=== PATIENT | male | born 1985 | race Caucasian/White ===

== ENCOUNTER → 2016-09-01 | Outpatient (CLI) | payer OTHER ==
[~2016-09-01] VITALS: Ht 167.6 cm; Wt 103.0 kg
[~2016-09-01] MED LIST: ASPI81TA28 PO; LEVO200T PO; LEVO25TA5 PO; OMEG10007 PO
[2016-09-01 13:16] VITALS: BP 118/77; PULSE 103; Ht 167.6 cm; Wt 103.0 kg
== END | disposition home or self-care (01) ==
LOC: C.NEUR 12:20
PROVIDERS: ATTEND Internal Medicine Pulmonary Disease
DX: G47.33 Obstructive sleep apnea (adult) (pediatric) (principal); E66.9 Obesity, unspecified

== ENCOUNTER → 2017-03-09 | Outpatient (CLI) | payer OTHER ==
[~2017-03-09] VITALS: Ht 175.3 cm; Wt 114.5 kg
[2017-03-09 12:35] VITALS: BP 121/75; PULSE 105; Ht 175.3 cm; Wt 114.5 kg
== END | disposition home or self-care (01) ==
LOC: C.NEUR 12:07
PROVIDERS: ATTEND Physician Assistant Medical
DX: E66.9 Obesity, unspecified (principal); G47.33 Obstructive sleep apnea (adult) (pediatric)

== ENCOUNTER 2017-10-11 07:09 | Emergency (ER) | payer OTHER ==
[~2017-10-11] VITALS: Ht 175.3 cm; Wt 114.0 kg
[2017-10-11 07:18] VITALS: TEMP 36.6; Ht 175.3 cm; Wt 114.0 kg
[2017-10-11] MEDS ORDERED: KETOROLAC TROMETHAMINE 30 MG/ML VIAL IV STA (07:34)
[2017-10-11] MEDS ORDERED: ONDANSETRON INJ 2 MG/ML 2 ML VIAL IV STA (07:34)
[2017-10-11] MEDS ORDERED: SODIUM CHLORIDE 0.9% 1000ML 1,000 ML IV STA (07:34)
[2017-10-11] MEDS ORDERED: PANT40TA2 PO (07:54)
[2017-10-11] MEDS ORDERED: METF500T5 PO (07:54)
[2017-10-11] MEDS ORDERED: LISI-461 PO (07:54)
[2017-10-11] MEDS ORDERED: FLNIN/ NAE (07:54)
[2017-10-11 07:58] LABS: BASO % 0.7 %; BASO ABS # 0.05 K/uL (0-0.2); EOS % 2.5 %; EOS ABS # 0.19 K/uL (0-0.5); HEMATOCRIT 46.7 % (42-52); HEMOGLOBIN 16.4 g/dL (14.0-18.0); IG# 0.02 K/uL (0.00-0.02); LYMPH ABS # 1.89 K/uL (1.2-3.4); MEAN CELL VOLUME 88.1 fL (80-100); MEAN CORPUSCULAR HEMOGLOBIN 30.9 pg (25-34); MEAN CORPUSCULAR HGB CONC 35.1 g/dl (32-36); MEAN PLATELET VOLUME 12.3 fL (7.4-10.4); MONO % 6.9 %; MONO ABS # 0.52 K/uL (0.11-0.59); NEUT % 64.6 %; PLATELET COUNT 179 K/uL (130-400); RED CELL DISTRIBUTION WIDTH CV 13.2 % (11.5-14.5); RED CELL DISTRIBUTION WIDTH SD 42.4 fL (36.4-46.3); WHITE BLOOD COUNT 7.57 K/uL (4.8-10.8)
[2017-10-11 08:29] LABS: ALBUMIN 3.9 gm/dl (3.4-5.0); CALCIUM 8.8 mg/dl (8.5-10.1); TOTAL PROTEIN 7.8 gm/dl (6.4-8.2)
[2017-10-11 08:31] LABS: CREATININE 1.05 mg/dl (0.60-1.40)
[2017-10-11 08:36] LABS: POTASSIUM 4.5 mmol/L (3.5-5.1)
--- NOTE | 2017-10-11 09:13 | DIAGNOSTIC IMAGING REPORT ---
ABDOMINAL ULTRASOUND, RIGHT UPPER QUADRANT HISTORY: Generalized abdominal pain with nausea, vomiting, diarrhea., URINARY SYMPTOMS. COMPARISON: Abdomen and pelvis CT 12/01/2013. FINDINGS: Pancreas: Obscured by overlying bowel gas. Liver: The liver is echogenic consistent with fatty change. 22 cm in length. Gallbladder: No gallbladder wall thickening. No gallstones. CBD: 5 mm. Right kidney: No hydronephrosis. IMPRESSION: 1. Normal gallbladder. No gallstones. 2. Hepatomegaly demonstrating fatty change. Electronically signed by: Raymond Blackwood M.D. 10/11/2017 9:12 AM Dictated Date/Time: 10/11/2017 9:10 AM
[2017-10-11] MEDS ORDERED: ONDA4TAB10 SL (10:05)
[2017-10-11 10:40] VITALS: BP 117/77; PULSE 97; O2SAT 96
--- NOTE | 2017-10-11 11:46 | EMERGENCY ROOM VISIT NOTE ---
History First contact with patient: 07:21 Chief Complaint: ABDOMINAL PAIN Stated Complaint: NAUSEA,VOMITING,DIARRHEA,STOMACH PAIN History of Present Illness The patient is a 32 year old male who presents to the Emergency Room with complaints of generalized abdominal pain, nausea, vomiting, watery diarrhea, postprandial discomfort, henrry colored stools, increased urinary frequency, polydipsia and polyuria. The patient reports that he last saw his PCP 2-3 months ago. Patient has a known history of type 2 diabetes. He had his metformin dosing increased to 1000 mg twice daily, and has had symptoms since that time. The patient also reports that he was provided a prescription for Prilosec, and initially did have some relief of his discomfort. His reports that he has notable symptoms shortly after eating meals. He has had notable flatulence and belching as well. The patient reports that if his symptoms did not improve, his PCP intended to perform an ultrasound of the abdomen. The patient has not followed up with his PCP with his symptoms. He currently rates his overall discomfort a 5 out of 10. He denies any other recent sick contacts. Review of Systems HEENT: Denies dizziness, visual problems, hearing loss, tinnitus. Denies difficulty swallowing or oral lesions. PULMONARY: Denies cough, shortness of breath, sputum production or hemoptysis. CARDIOVASCULAR: Denies chest pain, palpitations, dyspnea on exertion, orthopnea or peripheral edema. GASTROINTESTINAL: See HPI. GENITOURINARY: See HPI with complaint of polyuria. He denies any dysuria or hematuria.. NEUROLOGIC: Denies history of epilepsy, CVA, TIA or chronic headaches. MUSCULOSKELETAL: Denies history of joint tenderness/swelling. SKIN: Denies rashes or lesions. PSYCHIATRIC: Denies history of depression or mental illness. ENDOCRINE: History of hypothyroidism and type 2 diabetes. Past Medical/Surgical History Medical Problems: (1) Hypertension Nos (2) Hypothyroidism Nos (3) Right ureteral calculus Social History Smoking Status: Current Some Day Smoker Alcohol Use: occasionally Marital Status: Housing Status: lives with family Occupation Status: employed Current/Historical Medications Scheduled Aspirin (Aspirin Ec), 81 MG PO UD Fluticasone Propionate (Fluticasone Propionate), 1 SPRAY ABENA DAILY Levothyroxine Sodium (Synthroid), 200 MCG PO DAILY Levothyroxine Sodium (Levothyroxine Sodium), 25 MCG PO DAILY Lisinopril (Lisinopril), 10 MG PO DAILY Metformin Hcl Er (Glucophage Er), 1,000 MG PO BID Ondasetron Odt (Zofran Odt), 4 MG SL Q6H Pantoprazole (Pantoprazole Sodium), 40 MG PO DAILY Physical Exam Vital Signs Date Time Temp Pulse Resp B/P (MAP) Pulse Ox O2 Delivery O2 Flow Rate FiO2 10/11/17 10:40 97 16 117/77 96 10/11/17 08:59 100 18 120/76 94 Room Air 10/11/17 07:18 36.6 102 20 135/87 93 Room Air Physical Exam CONSTITUTIONAL: Obese male, alert and oriented X 3 with positive affect. Patient does not appear in any acute distress, nor does he appear toxic. HEENT: Normocephalic, atraumatic. Pupils equal, round and reactive. No scleral icterus or conjunctival injection/pallor. OROPHARYNX: Mucous membranes are dry. No tonsillar hypertrophy or exudates. NECK: Full active range of motion without discomfort. No JVD or carotid bruits. RESPIRATORY: Clear to auscultation bilaterally with no wheezing, crackles, rhonchi or stridor. CARDIOVASCULAR: Regular rate and rhythm with no murmurs, rubs or gallops. GASTROINTESTINAL: Bowel sounds present in all quadrants. Vision has generalized and nonfocal tenderness to palpation of the abdomen. Negative Waldron sign. Negative CVA tenderness. Negative McBurney's point tenderness. No abdominal rigidity, guarding or rebound. MUSCULOSKELETAL: Full range of motion of all joints without discomfort. INTEGUMENTARY: No rash or other significant dermatologic conditions noted. HEMATOLOGIC: No ecchymosis or petechiae noted. NEUROLOGIC: No focal neurologic deficits noted. Medical Decision & Procedures ER Provider Diagnostic Interpretation: My interpretation of an ECG shows a normal sinus rhythm of 79 bpm with a right bundle branch block. Review of medical record shows that the patient has had multiple prior ECG showing a similar right bundle branch block. Abdominal ultrasound does not show any obvious gallbladder disease. Fatty changes of the liver is noted. Radiologist report is as follows: ABDOMINAL ULTRASOUND, RIGHT UPPER QUADRANT HISTORY: Generalized abdominal pain with nausea, vomiting, diarrhea., URINARY SYMPTOMS. COMPARISON: Abdomen and pelvis CT 12/01/2013. FINDINGS: Pancreas: Obscured by overlying bowel gas. Liver: The liver is echogenic consistent with fatty change. 22 cm in length. Gallbladder: No gallbladder wall thickening. No gallstones. CBD: 5 mm. Right kidney: No hydronephrosis. IMPRESSION: 1. Normal gallbladder. No gallstones. 2. Hepatomegaly demonstrating fatty change. Laboratory Results 10/11/17 07:40 Red Blood Count 5.30, Mean Corpuscular Volume 88.1, Mean Corpuscular Hemoglobin 30.9, Mean Corpuscular Hemoglobin Concent 35.1, Mean Platelet Volume 12.3, Neutrophils (%) (Auto) 64.6, Lymphocytes (%) (Auto) 25.0, Monocytes (%) (Auto) 6.9, Eosinophils (%) (Auto) 2.5, Basophils (%) (Auto) 0.7, Neutrophils # (Auto) 4.90, Lymphocytes # (Auto) 1.89, Monocytes # (Auto) 0.52, Eosinophils # (Auto) 0.19, Basophils # (Auto) 0.05 10/11/17 07:40 Test 10/11/17 07:28 10/11/17 07:40 10/11/17 08:00 Urine Color YELLOW Urine Appearance CLEAR (CLEAR) Urine pH 5.0 (4.5-7.5) Urine Specific [place] 1.035 (1.000-1.030) Urine Protein NEG (NEG) Urine Glucose (UA) 3+ (NEG) Urine Ketones NEG (NEG) Urine Occult Blood NEG (NEG) Urine Nitrite NEG (NEG) Urine Bilirubin NEG (NEG) Urine Urobilinogen NEG (NEG) Urine Leukocyte Esterase NEG (NEG) White Blood Count 7.57 K/uL (4.8-10.8) Red Blood Count 5.30 M/uL (4.7-6.1) Hemoglobin 16.4 g/dL (14.0-18.0) Hematocrit 46.7 % (42-52) Mean Corpuscular Volume 88.1 fL (80-100) Mean Corpuscular Hemoglobin 30.9 pg (25-34) Mean Corpuscular Hemoglobin Concent 35.1 g/dl (32-36) Platelet Count 179 K/uL (130-400) Mean Platelet Volume 12.3 fL (7.4-10.4) Neutrophils (%) (Auto) 64.6 % Lymphocytes (%) (Auto) 25.0 % Monocytes (%) (Auto) 6.9 % Eosinophils (%) (Auto) 2.5 % Basophils (%) (Auto) 0.7 % Neutrophils # (Auto) 4.90 K/uL (1.4-6.5) Lymphocytes # (Auto) 1.89 K/uL (1.2-3.4) Monocytes # (Auto) 0.52 K/uL (0.11-0.59) Eosinophils # (Auto) 0.19 K/uL (0-0.5) Basophils # (Auto) 0.05 K/uL (0-0.2) RDW Standard Deviation 42.4 fL (36.4-46.3) RDW Coefficient of Variation 13.2 % (11.5-14.5) Immature Granulocyte % (Auto) 0.3 % Immature Granulocyte # (Auto) 0.02 K/uL (0.00-0.02) Anion Gap 11.0 mmol/L (3-11) Est Creatinine Clear Calc Drug Dose 123.4 ml/min Estimated GFR () 106.8 Estimated GFR (Non- 92.2 BUN/Creatinine Ratio 10.6 (10-20) Calcium Level 8.8 mg/dl (8.5-10.1) Total Bilirubin 0.5 mg/dl (0.2-1) Direct Bilirubin 0.2 mg/dl (0-0.2) Aspartate Amino Transf (AST/SGOT) 118 U/L (15-37) Alanine Aminotransferase (ALT/SGPT) 185 U/L (12-78) Alkaline Phosphatase 111 U/L (45-117) Total Creatine Kinase 85 U/L (39-308) Total Protein 7.8 gm/dl (6.4-8.2) Albumin 3.9 gm/dl (3.4-5.0) Lipase 279 U/L (73-393) Beta-Hydroxybutyric Acid 2.24 mg/dL (0.2-2.81) The above labs were reviewed. LFTs are elevated. Lipase is normal. CBC on remaining partial renal profile are also normal. Stool Hemoccult is negative. Additional stool studies does not show any fecal leukocytes. C. difficile screen is also negative. Stool cultures and other stool studies are pending Medications Administered Medications (Trade) Dose Ordered Sig/Ignacia Route Start Time Stop Time Status Last Admin Dose Admin Ketorolac Tromethamine (Toradol Inj) 30 mg NOW STAT IV 10/11/17 07:34 10/11/17 07:36 DC 10/11/17 07:59 30 MG Sodium Chloride 1,000 ml @ 999 mls/hr Q1H1M STAT IV 10/11/17 07:34 10/11/17 08:34 DC 10/11/17 07:59 999 MLS/HR Ondansetron HCl (Zofran Inj) 4 mg NOW STAT IV 10/11/17 07:34 10/11/17 07:36 DC 10/11/17 07:58 4 MG Procedure 1. IV hydration: The patient was administered a liter normal saline bolus 2. IV medications: Toradol 30 mg and Zofran 4 mg IVP ED Course Patient history and physical exam were performed. Nurse's notes were reviewed. Vital signs were reviewed. The patient is afebrile but mildly tachycardic. O2 saturation was 93% on room air in triage. Blood pressure is 135/87. Medication list was reviewed with the patient. IV access was established, and labs were drawn. Per nursing protocol, an ECG was performed, showing a normal sinus rhythm with right bundle branch block. No ST elevations or ischemia noted. The patient was hydrated with normal saline, and received IV medications as discussed in the previous Procedure section. Review of labs showed elevated liver transaminases. I did review a portion of prior medical records, showing that the patient has had elevated LFTs in the past. Abdominal ultrasound does not show any obvious acute gallbladder changes. Fatty liver is noted. Stool studies were ordered and are pending. Stool Hemoccult was negative. No fecal leukocytes were present. C. difficile screen was also negative. The case was further discussed with Dr. Ruiz, ED attending physician, who agrees with workup and outpatient plan of care. I explained to the patient that his symptoms are likely secondary to his escalated metformin dosing. He was encouraged to follow-up with his PCP for further reevaluation and management. I did call Dr. Medellin's office, but there were no medical providers there to discuss this workup. Or the nurses indicated that they would put a message in the system for the physician unit assistant that last saw the patient. The patient will be instructed to call their office for an appointment. The patient was welcomed to return to the emergency department with any progressively worsening symptoms. The patient was happy with plan of care, voiced understanding of all discharge instructions, and denied any significant discomfort or nausea at the time of discharge. The patient was provided a prescription for Zofran ODT as needed for nausea. Medical Decision Patient presents to the emergency department with complaint of intermittent and generalized abdominal discomfort, nausea, vomiting and diarrhea. Patient does have elevated liver transaminases; however, review of prior labs shows that he has had this before in the past. The patient recently had an escalation of his metformin dosing, and I suspect that this is what is causing his discomfort. Ultrasound does not show any evidence for cholecystitis, cholelithiasis or other acute findings. A fatty liver is noted. Urinalysis is not suggestive of infection. Abdominal exam does not suggest cholecystitis, pyelonephritis, peritonitis, appendicitis or other acute intra-abdominal etiologies. I do not suspect obstruction or diverticulitis. There are no fecal leukocytes to suggest overwhelming infectious etiology. Stool Hemoccult is also negative. C. difficile screen is also negative. [place] Drug Monitoring Program Search Results: patient reviewed within database Medication Reconcilliation Current Medication List: was personally reviewed by me Blood Pressure Screening Patient's blood pressure: Normal blood pressure Impression Primary Impression: Nausea, vomiting and diarrhea Additional Impression: Medication side effects Departure Information Prescriptions Ondasetron Odt (ZOFRAN ODT) 4 Mg Tab 4 MG SL Q6H for Nausea, #10 TAB Prov: Wade Bella PA 10/11/17 Referrals Sterling Medellin M.D. (PCP) Patient Instructions My [facility] Problem Qualifiers
== END 2017-10-11 10:42 | disposition home or self-care (01) ==
LOC: C.EDB 07:10
DX: Z11.2 Encounter for screening for other bacterial diseases (principal); R19.7 Diarrhea, unspecified; I10 Essential (primary) hypertension; E03.9 Hypothyroidism, unspecified; F17.200 Nicotine dependence, unspecified, uncomplicated; Z79.82 Long term (current) use of aspirin

== ENCOUNTER 2022-04-12 19:55 | Inpatient (IN) ==
[2022-04-12] MEDS ORDERED: ONDANSETRON INJ 2 MG/ML 2 ML VIAL IV STA (20:22)
[2022-04-12] MEDS ORDERED: SODIUM CHLORIDE 0.9% 1000ML 1,000 ML IV ONE (20:22)
[2022-04-12] MEDS ORDERED: HYDROmorphone INJ 1 MG/ML SYRINGE IV STA ×2 (20:22→22:25)
--- NOTE | 2022-04-12 20:25 | Emergency Department Note ---
Impression & Plan Small bowel obstruction ED Provider Note Name: MARIN DOBSON Age: 36 Sex: M Arrives Via: Walk-In Informant: Patient ED Provider: Wicho Bone MD Chief Complaint: abdominal pain Impression: as per impressions above Medical Decision Makin-year-old gentleman arrives for evaluation of left lower quadrant abdominal pain. Patient has a history of diabetes, hypertension, dyslipidemia and smoking. He notes that he had an episode several years ago of an omental infarct. No previous abdominal surgeries. He is quite uncomfortable on arrival thus was given IV Dilaudid and normal saline bolus. He required a second dose of pain meds after little while. CT of the abdomen pelvis does reveal a early/partial small bowel obstruction. He has had no vomiting in several hours. After discussion with general surgery plan will be to hold off on NG tube at this time. Given the multiple other comorbidities hospitalist will admit and general surgery will manage alongside them. Patient comfortable and agreeable to this plan. Prior Medical Record and Triage/Nursing Notes reviewed by Me Additional history obtained from chart Differentials:Appendicitis, testicular torsion, infections, diverticulitis, UTI, obstruction, mesenteric ischemia, aortic pathology, inflammatory bowel disease, renal colic, PUD, pancreatitis, biliary pathology, hernia, volvulus, constipation, as well as other pathologies. Vital Signs: reviewed and remarkable for no significant abnormalities Interventions: Dilaudid 1 mg IV x2, Zofran 4 mg IV, normal saline bolus IV Labs:Reviewed and remarkable for no significant abnormalities Imaging: Radiologist interpretation reviewed by me: CT ABDOMEN & PELVIS With Contrast: Dilated loops of fluid-filled small bowel measure up to 3.6 cm with a collapsed appearance of distal small bowel loops. Findings compatible with a small bowel obstruction potentially related to adhesions. The distal most small bowel and the colon are noncollapsed and demonstrate a normal caliber with fluid contents. This finding suggests the small bowel obstruction may be early or partial. Radiologist: George Pederson MD Consults:Gen Surg & Hospitalist Plan: Disposition:Hospitalization. Condition: Good History of Present Illness:36-year-old male arrives for evaluation of illness. Patient notes that he had rapid worsening of left lower quadrant pain starting yesterday. Relatively sudden in onset. Associate with nausea and vomiting and diarrhea. He notes some streaks of blood in the emesis but otherwise looks normal. His diarrhea is clear liquid. Multiple episodes of both today. No fevers but is having chills. He notes he is feeling somewhat lightheaded now. No radiation of pain. Pain is sharp in nature. No chest pain, shortness of breath, syncope. Denies any back pain currently. No leg swelling or calf pain. He has no rashes. No previous abdominal surgeries. He does have a history of an omental infarct several years ago which she does feel is somewhat similar to this. No medications prior to arrival due to inability to keep anything down. Any movement makes worse staying still makes slightly better. ROS: See above HPI for pertinent positives & negatives. A total of 10 systems reviewed and were otherwise negative. 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 EYES: No scleral icterus, unremarkable pupils. ENT: Mucous membranes moist, no nasal congestion. NECK: No masses appreciated, nomeningismus, trachea is midline. RESPIRATORY: No dyspnea. Clear to auscultation and equal bilaterally. No wheeze, no rhonchi. CARDIOVASCULAR: Tachy.No murmurs, rubs, gallops appreciated. GASTROINTESTINAL: TTP LLQ, otherwise abdomen soft, non-tender, no peritonitis.Bowel sounds positive.No masses appreciated. BACK: No midline tenderness, no CVA tenderness EXTREMITIES: Normal motion all extremities, no cyanosis, no edema. NEUROLOGIC: Alert and oriented, no acute motor or sensory deficits, no focal weakness, cranial nerves grossly intact. SKIN: No rash, no jaundice, no diaphoresis. PSYCH: Appropriate GCS: 15 ED Course: Times/Reassessments: improvement in pain, stable, agreeable to hospitalization Wicho Bone MD Past Med/Surg History Medical History (Updated 04/13/22 @ 01:01 by Wicho Bone MD) Influenza Nephrolithiasis Omental infarction Pneumonia Ureteral stone Family History Uncle Diabetes Grandfather (Maternal) COPD (chronic obstructive pulmonary disease) Mother Thyroid disease Father Cancer Other [place] disease Denies family history of Colon cancer Ovarian cancer Prostate cancer Myocardial infarction Breast cancer Social History Smoking Status: Current every day smoker Tobacco Type: Cigarettes packs per day: 1; Second Hand Exposure: Yes; Hx Alcohol Use: Yes Alcohol Intake Frequency: Monthly or Less Hx Substance Use: No Preferred Language: Occitan Communication Ability: Effective Hearing Ability: Normal 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: No marital status: Current Living Situation: Spouse current occupational status: employed current occupation: [employer] Feels Safe at Home: Yes Childhood Exposure to Second-Hand Smoke: No caffeine: Yes Dental Care, Regularly: No Physical Activity Frequency: Does not Exercise Seatbelt Use: always Sunscreen Use: Yes Assistive Devices: Glasses Allergies Allergies Allergy/AdvReac Type Severity Reaction Status Date / Time No Known Allergies Allergy Verified 04/12/22 23:39 Home Meds Home Medications Medication Instructions Recorded Confirmed dulaglutide 1.5 mg/0.5 mL 1.5 mg subcut WK 04/12/22 04/12/22 subcutaneous pen injector Previous Rx's Medication Instructions Recorded lancets 33 gauge (OneTouch Delica #100 ea 09/16/20 Plus Lancet) pen needle, diabetic 32 gauge x #100 ea 01/23/2107/17" blood sugar diagnostic (OneTouch #100 ea 12/29/21 Verio test strips) lisinopril 10 mg tablet 10 mg PO HS #90 tabs 12/29/21 empagliflozin 10 mg tablet 10 mg PO DAILY #90 tabs 01/16/22 (Jardiance) glimepiride 2 mg tablet 2 mg PO BID #60 tabs 02/16/22 rosuvastatin 5 mg tablet 10 mg PO DAILY #90 tabs 02/20/22 insulin glargine 100 unit/mL (3 30 unit (0.3 mL) subcut HS #15 mL 03/13/22 mL) subcutaneous pen (Basaglar KwikPen U-100 Insulin) levothyroxine 175 mcg tablet 175 mcg PO DAILY #90 tabs 03/17/22 metformin 500 mg tablet,extended 500 mg PO BID #60 tabs 04/09/22 release 24 hr Results & Data (ED) Vital Signs Vital Signs - 24 hr 04/12/22 19:57 04/12/22 21:56 04/13/22 00:11 Temperature 36.9 C Temperature Source Temporal Artery Scan Pulse Rate 110 H Pulse Rate [Finger] 76 90 Pulse Rhythm [Finger] Regular Pulse Strength [Finger] Normal Respiratory Rate 18 18 18 Respiratory Effort / Characteristics Non-Labored Spontaneous Non-Labored Spontaneous Respiratory Depth Normal Normal Respiratory Pattern Regular Blood Pressure 133/91 Blood Pressure [Right Arm] 142/67 H 112/73 Blood Pressure Mean 105 Blood Pressure Mean [Right Arm] 92 86 Blood Pressure Position Sitting Blood Pressure Position [Right Arm] Lying Pulse Oximetry 94 97 96 Oxygen Delivery Method Room Air Room Air Sepsis Recent Fever Within 48 Hours No Sepsis New/Unexplained Change in Mental Status No Sepsis Action Taken by Nursing No Action Required Laboratory Data Result diagrams: 04/12/22 20:19 04/12/22 20:19 Lab Results 04/12/22 04/12/22 04/12/22 Range/Units 20:19 20:19 22:20 WBC 14.45 H (4.8-10.8) K/ul RBC 5.79 (4.63-6.08) M/uL Hgb 17.5 (14.0-18.0) g/dl Hct 50.3 (40.1-51.0) % MCV 86.9 (80.0-100.0) fL MCH 30.2 (25.0-34.0) pg MCHC 34.8 (32.0-36.0) g/dL RDW Std Deviation 42.5 (36.4-46.3) fL RDW Coeff of Javier 13.5 (11.5-14.5) % Plt Count 230 (130-400) K/uL MPV 12.9 H (9.4-12.4) fL Immature Gran % (Auto) 0.3 % Neut % (Auto) 70.4 % Lymph % (Auto) 20.4 % Grady % (Auto) 7.0 % Eos % (Auto) 1.5 % Baso % (Auto) 0.4 % Neut # (Auto) 10.17 H (1.4-6.5) K/uL Lymph # (Auto) 2.95 (1.2-3.4) K/uL Grady # (Auto) 1.01 H (0.24-0.82) K/uL Eos # (Auto) 0.21 (0-0.50) K/uL Baso # (Auto) 0.06 (0-0.2) K/uL Immature Gran # (Auto) 0.05 H (0.00-0.02) K/uL Sodium 140 (136-145) mmol/L Potassium 4.1 (3.5-5.1) mmol/L Chloride 101 (98-107) mmol/L Carbon Dioxide 28 (21-32) mmol/L Anion Gap 11 (3-11) BUN 14 (6-23) mg/dl Creatinine 0.82 (0.6-1.4) mg/dl Est Cr Clr Drug Dosing 136.7 ml/min Est GFR ( Amer) 130.0 ml/min Est GFR (Non-Af Amer) 112.2 ml/min BUN/Creatinine Ratio 17.1 (10-20) Glucose 139 H (70-99(Fasting)) mg/dl Calcium 9.9 (8.5-10.1) mg/dl Total Bilirubin 0.9 (0.2-1.0) mg/dl AST 13 (13-39) U/L ALT 24 (7-52) U/L Alkaline Phosphatase 81 (34-104) U/L Total Protein 7.7 (6.0-8.3) gm/dl Albumin 4.5 (3.4-5.0) gm/dl Globulin 3.2 (2.5-4.0) gm/dl Albumin/Globulin Ratio 1.4 (0.9-2) Lipase 94 H (11-82) U/L Urine Color Yellow Urine Appearance Clear (Clear) Urine pH 6.5 (4.5-7.5) Ur Specific Todd > 1.045 H (1.000-1.030) Urine Protein Negative (Negative) Urine Glucose (UA) 3+ H (Negative) Urine Ketones Negative (Negative) Urine Blood Negative (Negative) Urine Nitrite Negative (Negative) Urine Bilirubin Negative (Negative) Urine Urobilinogen Negative (Negative) Ur Leukocyte Esterase Negative (Negative) SARS-CoV-2, RNA, NAAT (NEGATIVE) 04/12/22 Range/Units 23:43 WBC (4.8-10.8) K/ul RBC (4.63-6.08) M/uL Hgb (14.0-18.0) g/dl Hct (40.1-51.0) % MCV (80.0-100.0) fL MCH (25.0-34.0) pg MCHC (32.0-36.0) g/dL RDW Std Deviation (36.4-46.3) fL RDW Coeff of Javier (11.5-14.5) % Plt Count (130-400) K/uL MPV (9.4-12.4) fL Immature Gran % (Auto) % Neut % (Auto) % Lymph % (Auto) % Grady % (Auto) % Eos % (Auto) % Baso % (Auto) % Neut # (Auto) (1.4-6.5) K/uL Lymph # (Auto) (1.2-3.4) K/uL Grady # (Auto) (0.24-0.82) K/uL Eos # (Auto) (0-0.50) K/uL Baso # (Auto) (0-0.2) K/uL Immature Gran # (Auto) (0.00-0.02) K/uL Sodium (136-145) mmol/L Potassium (3.5-5.1) mmol/L Chloride (98-107) mmol/L Carbon Dioxide (21-32) mmol/L Anion Gap (3-11) BUN (6-23) mg/dl Creatinine (0.6-1.4) mg/dl Est Cr Clr Drug Dosing ml/min Est GFR ( Amer) ml/min Est GFR (Non-Af Amer) ml/min BUN/Creatinine Ratio (10-20) Glucose (70-99(Fasting)) mg/dl Calcium (8.5-10.1) mg/dl Total Bilirubin (0.2-1.0) mg/dl AST (13-39) U/L ALT (7-52) U/L Alkaline Phosphatase (34-104) U/L Total Protein (6.0-8.3) gm/dl Albumin (3.4-5.0) gm/dl Globulin (2.5-4.0) gm/dl Albumin/Globulin Ratio (0.9-2) Lipase (11-82) U/L Urine Color Urine Appearance (Clear) Urine pH (4.5-7.5) Ur Specific Todd (1.000-1.030) Urine Protein (Negative) Urine Glucose (UA) (Negative) Urine Ketones (Negative) Urine Blood (Negative) Urine Nitrite (Negative) Urine Bilirubin (Negative) Urine Urobilinogen (Negative) Ur Leukocyte Esterase (Negative) SARS-CoV-2, RNA, NAAT NEGATIVE (NEGATIVE) Administered Medications Discontinued Medications Hydromorphone HCl (Hydromorphone Inj 1 Mg/Ml Syringe) 1 mg IV NOW STA Stop: 04/12/22 20:23 Last Admin: 04/12/22 20:28 Dose: 1 mg Documented By: ERVIN Hydromorphone HCl (Hydromorphone Inj 1 Mg/Ml Syringe) 1 mg IV NOW STA Stop: 04/12/22 22:26 Last Admin: 04/12/22 22:33 Dose: 1 mg Documented By: ERVIN Sodium Chloride (Nss 1000ml) 1,000 mls @ 999 mls/hr IV .Q1H1M ONE Stop: 04/12/22 21:22 Last Infusion: 04/12/22 21:56 Dose: 0 mls/hr Documented By: Admin: 04/12/22 20:30 Dose: 999 mls/hr Documented By: ERVIN Ioversol (Ioversol 350 Mg 100ml Prefilled Syringe) 93 ml IV ONCE ONE Stop: 04/12/22 21:50 Last Admin: 04/12/22 21:50 Dose: 93 ml Documented By: DONALD Ondansetron HCl (Ondansetron Inj 2 Mg/Ml 2 Ml Vial) 4 mg IV NOW STA Stop: 04/12/22 20:23 Last Admin: 04/12/22 20:28 Dose: 4 mg Documented By: ERVIN Discharge Plan Visit Data Chief Complaint: Abdominal Pain Stated Complaint: L SIDE ABD PAIN, VOMITTING ED Provider: Wicho Bone Discharge Problem: Small bowel obstruction Forms Stand Alone Forms: My [employer] Prescriptions Prescriptions: No Action (DME) lancets [OneTouch Delica Plus Lancet] 33 gauge misc See Dose Instructions .ROUTE .MEDSUPPLY Qty: 100 5RF Rx Instructions: As directed (DME) OneTouch Verio test strips Strip See Dose Instructions .ROUTE .MEDSUPPLY Qty: 100 5RF Rx Instructions: check blood sugar before meals lisinopril 10 mg tablet 10 mg PO HS Qty: 90 3RF Jardiance 10 mg tablet 10 mg PO DAILY Qty: 90 11RF glimepiride 2 mg tablet 2 mg PO BID Qty: 60 11RF insulin glargine [Basaglar KwikPen U-100 Insulin] 100 unit/mL (3 mL) insulin pen 30 unit SQ HS Qty: 15 11RF levothyroxine 175 mcg tablet 175 mcg PO DAILY Qty: 90 3RF metformin 500 mg tablet extended release 24 hr 500 mg PO BID Qty: 60 5RF (DME) pen needle, diabetic 32 gauge x 1/6" needle See Rx Instructions .Route Qty: 100 5RF Rx Instructions: Inject once or twice daily as instructed Dx: Type II Diabetes rosuvastatin 5 mg tablet 10 mg PO DAILY Qty: 90 3RF dulaglutide 1.5 mg/0.5 mL pen injector 1.5 mg subcut WK Rx Instructions: take this med every Wednesday evening Referrals Referrals: Poppy Das CRNP [Primary Care Provider] -
[2022-04-12 20:39] LABS: Hematocrit (blood only) 50.3 % (40.1-51.0); Hemoglobin 17.5 g/dl (14.0-18.0); Mean Corpuscular Hemoglobin 30.2 pg (25.0-34.0); Mean Corpuscular Hgb Conc 34.8 g/dL (32.0-36.0); Mean Corpuscular Volume 86.9 fL (80.0-100.0); RDW Coefficient of Variation 13.5 % (11.5-14.5); RDW Standard Deviation 42.5 fL (36.4-46.3); Red Blood Count 5.79 M/uL (4.63-6.08); White Blood Count 14.45 K/ul (4.8-10.8)
[2022-04-12 20:46] LABS: Basophils # (auto) 0.06 K/uL (0-0.2); Basophils % (auto) 0.4 %; Eosinophils # (auto) 0.21 K/uL (0-0.50); Eosinophils % (auto) 1.5 %; Immature Granulocytes # (auto) 0.05 K/uL (0.00-0.02); Immature Granulocytes % (auto) 0.3 %; Lymphocytes # (auto) 2.95 K/uL (1.2-3.4); Lymphocytes % (auto) 20.4 %; Mean Platelet Volume 12.9 fL (9.4-12.4); Monocytes # (auto) 1.01 K/uL (0.24-0.82); Neutrophils # (auto) 10.17 K/uL (1.4-6.5); Neutrophils % (auto) 70.4 %; Platelet Count 230 K/uL (130-400)
[2022-04-12 21:16] LABS: Albumin Globulin Ratio 1.4 (0.9-2); Albumin Level 4.5 gm/dl (3.4-5.0); BUN Creatinine Ratio 17.1 (10-20); Bilirubin,Total 0.9 mg/dl (0.2-1.0); Calcium 9.9 mg/dl (8.5-10.1); Creatinine Clr Calc Pharmacy 136.7 ml/min; Est GFR (Non-African American) 112.2 ml/min; Globulin 3.2 gm/dl (2.5-4.0); Potassium 4.1 mmol/L (3.5-5.1); Total Protein 7.7 gm/dl (6.0-8.3)
[2022-04-12] MEDS ORDERED: IOVERSOL 350 MG 100mL Prefilled Syringe IV ONE (21:49)
[2022-04-12 22:35] LABS: Appearance Urine Clear (Clear); Bilirubin Urine Negative (Negative); Blood Urine Negative (Negative); Color Urine Yellow; Glucose Urine UA 3+ (Negative); Ketones Urine Negative (Negative); Leukocyte Esterase Urine Negative (Negative); Nitrite Urine Negative (Negative); Protein Urine Negative (Negative); Specific Gravity Urine > 1.045 (1.000-1.030); Urobilinogen Urine Negative (Negative); pH Urine 6.5 (4.5-7.5)
--- NOTE | 2022-04-12 22:55 | History & Physical Report ---
Date of Service April 12, 2022 Assessment & Plan (1) Small bowel obstruction: Plan: Patient is a 36 yo male with PMHx of HTN, hypothyroidism, HLD, DM2, and omental infarction admitted to [facility] on 04/12/22 for small bowel obstruction. Small bowel obstruction - CT abd 04/12/22 stat rad report: "dilated loops of fluid-filled small bowel measures up to 3.6 cm with a collapsed appearance of distal small bowel loops. Findings compatible with a small bowel obstruction potentially related to adhesions." - [facility] - Conservative management with IV analgesic, IV antiemetic, IVF - NPO - Surgery consulted -- per recommendations, patient w/o emesis since this AM so can withhold on placing an NG at this time - Will continue to monitor - Repeat CBC and BMP in AM Diabetes 2 - Most recent A1c 7.7% on 02/17/22 - Patient with home regimen including Trulicity, Jardiance, glimepiride, and insulin glargine. Home regimen held on admission. - Cover with basal bolus. - Glycemic consult placed Hyperlipidemia - Continue home statin HTN - Continue home lisinopril Hypothyroidism - Continue home synthroid Dispo: Admit to [facility] FENGI: NPO, IVF with LR at 150 cc/hr Code status: FULL CODE (2) Diabetes type 2, uncontrolled: (3) Hyperlipemia: (4) HTN (hypertension): (5) Hypothyroidism: History of Present Illness Chief Complaint: abdominal pain Primary Care Provider: ERIC Amaro Patient is a 36 yo male with PMHx of HTN, HLD, DM2, and omental infarction who presented to the [facility] ED on 04/12/22 with abd pain. Patient states that around 12pm yesterday, he was sitting with family watching TV when he had an acute onset of left lower quadrant abdominal pain that progressively worsened. At worse, pain rated at a 7/10. Pain was vague and "difficult to describe" but was reminiscent of hx of omental infarction ~ 3 years ago (November 2018). Patient reports associated bloating, nausea, vomiting, and diarrhea. Last episode of emesis was at 0700 this morning (> 12 hours ago); there was no blood in the emesis. Diarrhea is brown liquid w/o blood. Patient also with decreased appetite; prior to onset of pain appetite had been normal. Patient did have COVID-19 about 2 weeks ago (tested positive on 03/30) which was managed at home; symptoms included fever, malaise, myalgia, sore throat, and cough. Symptoms resolved after about 3 days and have not recurred. Currently denies fever, chills, CP, SOB, or cough. In the ED, patient had an abd CT which revealed "dilated loops of fluid-filled small bowel measures up to 3.6 cm with a collapsed appearance of distal small bowel loops. Findings compatible with a small bowel obstruction potentially related to adhesions." Labs: mild leukocytosis with WBC 14.4. No anemia. Electrolytes wnl. Normal LFTs. Mild elevation in lipase at 94. Surgery was consulted who evaluated the patient in the ED prior to admission. Recommend conservative management at this time. Allergies Allergy/AdvReac Type Severity Reaction Status Date / Time No Known Allergies Allergy Verified 04/12/22 23:39 Home Medications Medication Instructions Recorded Confirmed Type lancets 33 gauge (Duck Duck MooseTouch Delica #100 ea 09/16/20 02/20/22 Rx Plus Lancet) pen needle, diabetic 32 gauge x #100 ea 01/23/21 02/20/22 Rx 1/6" blood sugar diagnostic (OneTouch #100 ea 12/29/21 02/20/22 Rx Verio test strips) lisinopril 10 mg tablet 10 mg PO HS #90 tabs 12/29/21 04/12/22 Rx empagliflozin 10 mg tablet 10 mg PO DAILY #90 tabs 01/16/22 04/12/22 Rx (Jardiance) glimepiride 2 mg tablet 2 mg PO BID #60 tabs 02/16/22 04/12/22 Rx rosuvastatin 5 mg tablet 10 mg PO DAILY #90 tabs 02/20/22 04/12/22 Rx insulin glargine 100 unit/mL (3 30 unit (0.3 mL) subcut HS #15 mL 03/13/22 04/12/22 Rx mL) subcutaneous pen (Basaglar KwikPen U-100 Insulin) levothyroxine 175 mcg tablet 175 mcg PO DAILY #90 tabs 03/17/22 04/12/22 Rx metformin 500 mg tablet,extended 500 mg PO BID #60 tabs 04/09/22 04/12/22 Rx release 24 hr dulaglutide 1.5 mg/0.5 mL 1.5 mg subcut WK 04/12/22 04/12/22 History subcutaneous pen injector Past Med/Surg History Medical History (Updated 04/13/22 @ 01:38 by Shanta López RN) Diabetes DM type 2 (diabetes mellitus, type 2) Hypotension Hypothyroidism Influenza Nephrolithiasis Omental infarction Pneumonia Ureteral stone Family History Uncle Diabetes Grandfather (Maternal) COPD (chronic obstructive pulmonary disease) Mother Thyroid disease Father Cancer Other [place] disease Denies family history of Colon cancer Ovarian cancer Prostate cancer Myocardial infarction Breast cancer Social History Smoking Status: Current every day smoker Tobacco Type: Cigarettes packs per day: 1; Cigarettes Per Day: pack/ 20 ciggarettes; Second Hand Exposure: No; Do You Dip or Chew Tobacco: Yes; Tobacco Cessation Education Requested by Patient: No Hx Alcohol Use: Yes Alcohol type: beer Alcohol Intake Frequency: Monthly or Less Hx Substance Use: No Preferred Language: Cypriot Communication Ability: Effective Hearing Ability: Normal Assistant [employer] Required: No Beliefs That Will Affect Care: None marital status: Current Living Situation: Spouse current occupational status: employed current occupation: [employer] Other Information That Helps Us Care for You: No Feels Safe at Home: Yes Safety Concerns: Feels Safe At This Time Childhood Exposure to Second-Hand Smoke: No caffeine: Yes Dental Care, Regularly: No Physical Activity Frequency: Does not Exercise Seatbelt Use: always Sunscreen Use: Yes Assistive Devices: CPAP and Glasses Review of Systems Review of Systems: See HPI Physical Exam Physical Exam: GENERAL: No acute distress. Well developed and well nourished. Vital signs reviewed as above. EYES: PERRLA. EOMI. Anicteric sclerae. + glasses. HENT: Moist mucous membranes. No pharyngeal erythema or exudates. RESPIRATORY: Clear to auscultation bilaterally. No wheezing, rales, or rhonchi. CARDIOVASCULAR: Regular rate and rhythm. No murmurs. No JVD. ABDOMEN: Abd is mildly distended but soft. Mild tenderness to palpation diffusely, most prominent in left lower quadrant. No rebound or guarding. Normal bowel sounds. Flexion at hips with straight leg raise does not increase abdominal pain. EXTREMITIES: No edema. Non-tender. SKIN: Warm, dry. NEUROLOGIC: A/O x3. Normal speech. No focal neurological deficits. CN II-XII grossly intact, but not individually tested. 5/5 strength in BUE and BLE. PSYCHIATRIC: Cooperative. Appropriate mood and affect. Results & Data Results & Data ([facility]) Vital Signs (Past 12 Hours) Vital Signs Temp Pulse Pulse Resp BP BP Pulse Ox 04/12/22 21:56 76 18 142/67 H 97 04/12/22 19:57 36.9 C 110 H 18 133/91 94 O2 Del Method 04/12/22 21:56 04/12/22 19:57 Room Air Laboratory Results 04/12/22 04/12/22 04/12/22 Range/Units 22:20 20:19 20:19 WBC 14.45 H (4.8-10.8) K/ul RBC 5.79 (4.63-6.08) M/uL Hgb 17.5 (14.0-18.0) g/dl Hct 50.3 (40.1-51.0) % MCV 86.9 (80.0-100.0) fL MCH 30.2 (25.0-34.0) pg MCHC 34.8 (32.0-36.0) g/dL RDW Std Deviation 42.5 (36.4-46.3) fL RDW Coeff of Javier 13.5 (11.5-14.5) % Plt Count 230 (130-400) K/uL MPV 12.9 H (9.4-12.4) fL Immature Gran % (Auto) 0.3 % Neut % (Auto) 70.4 % Lymph % (Auto) 20.4 % Meade % (Auto) 7.0 % Eos % (Auto) 1.5 % Baso % (Auto) 0.4 % Neut # (Auto) 10.17 H (1.4-6.5) K/uL Lymph # (Auto) 2.95 (1.2-3.4) K/uL Meade # (Auto) 1.01 H (0.24-0.82) K/uL Eos # (Auto) 0.21 (0-0.50) K/uL Baso # (Auto) 0.06 (0-0.2) K/uL Immature Gran # (Auto) 0.05 H (0.00-0.02) K/uL Sodium 140 (136-145) mmol/L Potassium 4.1 (3.5-5.1) mmol/L Chloride 101 (98-107) mmol/L Carbon Dioxide 28 (21-32) mmol/L Anion Gap 11 (3-11) BUN 14 (6-23) mg/dl Creatinine 0.82 (0.6-1.4) mg/dl Est Cr Clr Drug Dosing 136.7 ml/min Est GFR ( Amer) 130.0 ml/min Est GFR (Non-Af Amer) 112.2 ml/min BUN/Creatinine Ratio 17.1 (10-20) Glucose 139 H (70-99(Fasting)) mg/dl Calcium 9.9 (8.5-10.1) mg/dl Total Bilirubin 0.9 (0.2-1.0) mg/dl AST 13 (13-39) U/L ALT 24 (7-52) U/L Alkaline Phosphatase 81 (34-104) U/L Total Protein 7.7 (6.0-8.3) gm/dl Albumin 4.5 (3.4-5.0) gm/dl Globulin 3.2 (2.5-4.0) gm/dl Albumin/Globulin Ratio 1.4 (0.9-2) Lipase 94 H (11-82) U/L Urine Color Yellow Urine Appearance Clear (Clear) Urine pH 6.5 (4.5-7.5) Ur Specific [place] > 1.045 H (1.000-1.030) Urine Protein Negative (Negative) Urine Glucose (UA) 3+ H (Negative) Urine Ketones Negative (Negative) Urine Blood Negative (Negative) Urine Nitrite Negative (Negative) Urine Bilirubin Negative (Negative) Urine Urobilinogen Negative (Negative) Ur Leukocyte Esterase Negative (Negative) Diagnostic Findings [facility] Patient: MARIN DOBSON (Male) : 81 Status: ER Date: 04/12/22 21:57 Room #: History: LLQ PAIN N/V Slices: [id number] Priors: Tech: Parish Rivera @ [phone] Exams: CT ABDOMEN & PELVIS With Contrast Contrast: IV Amt: 93 Accession Numbers: [id number] Referring Physician: REFERRED SELF Preliminary Findings Only See Final Report For Complete Findings CT ABDOMEN & PELVIS With Contrast: Dilated loops of fluid-filled small bowel measure up to 3.6 cm with a collapsed appearance of distal small bowel loops. Findings compatible with a small bowel obstruction potentially related to adhesions. The distal most small bowel and the colon are noncollapsed and demonstrate a normal caliber with fluid contents. This finding suggests the small bowel obstruction may be early or partial. Radiologist: George Pederson MD Study ready at 22:14 and initial results transmitted at 22:22 *This report constitutes a preliminary interpretation only. Non-acute findings felt to be unrelated to the clinical presentation may not be discussed in this report. The study will be interpreted and a final report will be generated by the local Radiologist the following shift. To reach the [facility] radiology department call [phone]. If a discrepancy is found between the preliminary and final interpretations of this study, please notify us via our Client Portal at [email or web address], under QA Exams. You can also fax this report with a description of the discrepancy, or include the final report, to our daytime fax number [phone]. If faxing, please indicate the severity of discrepancy using one of the following categories: [ ] 1 - Agree/Informational [ ] 2 - Unlikely to Affect Management [ ] 3 - Possible Eventual Change of Management [ ] 4 - Probable Immediate Change of Management For all other patient related information, please fax us at [phone]. [phone] Supervising Physician Co-Signing Physician Notes Attending addendum: I have physically seen this patient, have supervised the medical residents activities, and agree with the H&P unless as otherwise noted. Assessment and Plan: Small bowel obstruction- Per CT likely secondary to adhesions NPO LR@150 mils per hour Zofran 4 mg IV every 6 hours as needed Famotidine 20 mg IV every 12 hours Analgesics as noted General surgery seen and is aware Diabetes mellitus- Hold empagliflozin, dulaglutide, glimepiride Reduced dosing of glargine from 30 to 10 units subcu Hypertension- Lisinopril on hold while n.p.o. Hyperlipidemia- Rosuvastatin on hold while n.p.o. Remaining orders and notations as noted Resident Activity Tracking Resident Involvement: Resident Care Provided Care Provided: Adult Hospital Medicine (1) Hypothyroidism Hypothyroidism type: acquired Qualified Code(s): E03.9 - Hypothyroidism, unspecified (2) Diabetes type 2, uncontrolled Glycemic state: with hyperglycemia Qualified Code(s): E11.65 - Type 2 diabetes mellitus with hyperglycemia
--- NOTE | 2022-04-12 23:00 | Surgery Consultation ---
Date of Consultation April 12, 2022 Assessment & Plan (1) Small bowel obstruction: I discussed with the treating emergency room physician. He is planning on having the patient admitted on the medical service. We recommend proceeding as follows: Provide analgesics Provide antiemetics Provide IV fluid for hydration Implement n.p.o. status I discussed with the patient that since he has not had any emesis since 6:30 AM this morning we can withhold on placing an NG tube at this time. I did discuss with him that if he has any further nausea and vomiting that ensue or if his abdominal becomes more distended he may require an NG tube for gastric decompression I discussed with the patient that he could potentially have some scar tissue/adhesions from his previous omental infarction and inflammation that occurred during this problem which may have resulted in a partial small bowel obstruction. Discussed with him that we will attempt to resolve this with conservative measures. Once he has improvement of his abdominal exam and begins to have return of bowel function we can consider advancing his diet beginning with clear liquids We will continue to follow along with further recommendations based on his clinical course as it unfolds Supervising Physician Co-Signing Physician Notes pnt d/w HAIDER Caban, labs and imaging reviewed. abd pain. on exam afvss. CT personally reviewed and agree with dilated bowel with gradual transition to less dilated bowel, may represent partial sbo vs entereitis vs ileus. no surgical intervention indicated, npo, ivf's. History of Present Illness Reason for Consultation: Possible small bowel obstruction History of Present Illness This is a 36-year-old male who reports that he had a history of an omental infarction approximately 3 years ago. He says he did not require surgical intervention for this. He also adds that he does never had any abdominal surgeries in the past. He presented to the emergency department today secondary to abdominal pain that began yesterday. He notes prior to this he was in his usual state of health feeling fine. He notes some vague abdominal pain greatest in the left lower quadrant of his abdomen with associated nausea vomiting that began yesterday. He did not seek medical attention immediately as he thought that this would improve but throughout the course of the day he continued to have persistent nausea and vomiting and continued abdominal pain thus prompting his visit to the emergency department. He does not note any modifying factors regarding his abdominal pain and he does not note any radiation of the pain. As previously noted he has never had any prior abdominal surgeries. The patient notes that he has not had any emesis since approximately 6:30 AM this morning In the emergency department the patient had a CT scan abdomen and pelvis that showed that he had dilated loops of fluid-filled small bowel measuring approximately 3.6 cm. This was concerning for a small bowel obstruction potentially related to adhesions. Labs include a CBC her white blood cell count was 14.4. Hemoglobin, hematocrit, and platelet count were normal. Chemistry profile showed sodium, potassium, BUN, and creatinine were normal. There is no elevation of his LFTs. He did have a slight elevation of his lipase at 94. Urinalysis was not indicative of infection. At the time of my interview the patient was resting comfortably in bed and he was in no distress. Allergies Allergy/AdvReac Type Severity Reaction Status Date / Time No Known Allergies Allergy Verified 04/12/22 23:39 Home Medications Medication Instructions Recorded Confirmed Type lancets 33 gauge (OneTouch Delica #100 ea 09/16/20 02/20/22 Rx Plus Lancet) pen needle, diabetic 32 gauge x #100 ea 01/23/21 02/20/22 Rx 1/6" blood sugar diagnostic (OneTouch #100 ea 12/29/21 02/20/22 Rx Verio test strips) lisinopril 10 mg tablet 10 mg PO HS #90 tabs 12/29/21 04/12/22 Rx empagliflozin 10 mg tablet 10 mg PO DAILY #90 tabs 01/16/22 04/12/22 Rx (Jardiance) glimepiride 2 mg tablet 2 mg PO BID #60 tabs 02/16/22 04/12/22 Rx rosuvastatin 5 mg tablet 10 mg PO DAILY #90 tabs 02/20/22 04/12/22 Rx insulin glargine 100 unit/mL (3 30 unit (0.3 mL) subcut HS #15 mL 03/13/22 04/12/22 Rx mL) subcutaneous pen (Basaglar KwikPen U-100 Insulin) levothyroxine 175 mcg tablet 175 mcg PO DAILY #90 tabs 03/17/22 04/12/22 Rx metformin 500 mg tablet,extended 500 mg PO BID #60 tabs 04/09/22 04/12/22 Rx release 24 hr dulaglutide 1.5 mg/0.5 mL 1.5 mg subcut WK 04/12/22 04/12/22 History subcutaneous pen injector Patient History Medical History (Updated 04/13/22 @ 00:05 by Yousif Gan) Influenza Nephrolithiasis Omental infarction Pneumonia Ureteral stone Family History Uncle Diabetes Grandfather (Maternal) COPD (chronic obstructive pulmonary disease) Mother Thyroid disease Father Cancer Other [place] disease Denies family history of Colon cancer Ovarian cancer Prostate cancer Myocardial infarction Breast cancer Social History Smoking Status: Current every day smoker Tobacco Type: Cigarettes packs per day: 1; Second Hand Exposure: Yes; Hx Alcohol Use: Yes Alcohol Intake Frequency: Monthly or Less Hx Substance Use: No Preferred Language: Icelandic Communication Ability: Effective Hearing Ability: Normal 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 marital status: Current Living Situation: Spouse current occupational status: employed current occupation: [employer] Feels Safe at Home: Yes Childhood Exposure to Second-Hand Smoke: No caffeine: Yes Dental Care, Regularly: No Physical Activity Frequency: Does not Exercise Seatbelt Use: always Sunscreen Use: Yes Assistive Devices: Glasses Review of Systems Constitutional: no fever and no chills Eyes: + corrective lenses Ear, Nose, Mouth, Throat: no ear pain Respiratory: no cough and no dyspnea Gastrointestinal: as per Subjective / HPI, + abdominal pain, + nausea and + vomiting Genitourinary: no dysuria Musculoskeletal: no back pain Integumentary: no rash Neurologic: no localized weakness Physical Exam Constitutional: WD/WN, vitals as above Eyes: Wears glasses ENMT: Ears: no hearing impairment and no external ear abnormality Mouth: no oropharynx abnormality Neck: trachea midline Respiratory: normal respiratory effort; no respiratory distress and no labored breathing Cardiovascular: Rate/Rhythm: regular rate and regular rhythm Gastrointestinal (Abdomen): Abdomen is soft and nonrigid. It is minimally distended. It is not tympanic to percussion. Patient did have some pain with palpation in the left lower quadrant but there is no rebound tenderness or guarding. I did not appreciate any hernias. Musculoskeletal: No calf tenderness Skin: no rashes Neurologic: moves all extremities Psychiatric: A+Ox3, euthymic affect Results & Data ([place]) Vital Signs (Past 12 Hours) Vital Signs Temp Pulse Pulse Resp BP BP Pulse Ox 04/12/22 21:56 76 18 142/67 H 97 04/12/22 19:57 36.9 C 110 H 18 133/91 94 O2 Del Method 04/12/22 21:56 04/12/22 19:57 Room Air PG Care Time/CCT Total # of Minutes Spent Total Time Spent with Patient: Total time spent is greater than 50% in coordination of care (as documented) at patient's floor/unit and/or counseling patient: Coding Level of Care Code 99083 Inpt Consult Level 5 Diagnoses Small bowel obstruction K56.609
[2022-04-13] MEDS ORDERED: CARBOHYDRATES FOR HYPOGLYCEMIA PO PRN (01:29)
[2022-04-13] MEDS ORDERED: ALBUTEROL HFA 8 GM INHALER INH PRN (01:29)
[2022-04-13] MEDS ORDERED: ONDANSETRON INJ 2 MG/ML 2 ML VIAL IV PRN (01:29)
[2022-04-13] MEDS ORDERED: MoRPHine SULFATE 2 MG/ML CARP IV PRN (01:29)
[2022-04-13] MEDS ORDERED: PHARMACY GLYCEMIC MGMT CONSULT PRN (01:29)
[2022-04-13] MEDS ORDERED: GLUCOSE 10 TAB/TUBE PO PRN (01:29)
[2022-04-13] MEDS ORDERED: MoRPHine SULFATE 4 MG/ML 1 ML CARP\\VIAL IV PRN (01:29)
[2022-04-13] MEDS ORDERED: GLUCOSE 40% GEL 15 GM TUBE PO PRN (01:29)
[2022-04-13] MEDS ORDERED: GLUCAGON FOR INJ 1 MG VIAL SQ PRN (01:29)
[2022-04-13] MEDS ORDERED: DEXTROSE 50% 50 ML SYRINGE IV PRN (01:29)
[2022-04-13] MEDS ORDERED: Nursing to Pharmacy Communication SCH (02:00)
[2022-04-13] MEDS: LACTATED RINGER'S 1,000 ML IV SCH ×4 (02:37→21:12)
[2022-04-13] MEDS ORDERED: KETOROLAC TROMETHAMINE 15 MG/ML VIAL IV PRN (02:55)
[2022-04-13] MEDS: LEVOTHYROXINE SODIUM 175 MCG TABLET PO SCH (05:47)
--- NOTE | 2022-04-13 05:55 | Billing Data ---
Date of Service April 13, 2022 Coding Level of Care Code 97300 Initial Inpt Care Lvl 3
[2022-04-13] MEDS: INSULIN ASPART PER UNIT SC SCH ×3 (06:22→17:58)
--- NOTE | 2022-04-13 07:17 | CT Scan Report ---
CT OF THE ABDOMEN AND PELVIS WITH CONTRAST CLINICAL HISTORY: Left lower quadrant pain, nausea and vomiting. COMPARISON STUDY: CT of the abdomen and pelvis August 15, 2019. TECHNIQUE: Following IV administration of 93 mL of Optiray, axial images of the abdomen and pelvis we re obtained from the lung bases to the proximal femurs. Images were reviewed in the axial, sagittal, and coronal planes. IV contrast was administered without complication. Automated exposure control wa s utilized for the study. A dose lowering technique was utilized adhering to the principles of ALARA . CT DOSE: 1106.49 mGy.cm FINDINGS: Lung bases are unremarkable. A calcified granuloma within the right lower lobe is incidenta lly noted. No pneumatosis, free air or portal venous gas is present. There is hepatic steatosis. No h epatic lesions are present. No biliary or pancreatic ductal dilatation is present. Spleen, adrenal gl ands and pancreas are unremarkable with exception of a subcentimeter left renal lesion which has decr eased in size since prior CT. This is benign. Numerous loops of mildly dilated mid small bowel are no pierce. These loops of fluid-filled. There is mild associated mesenteric infiltration and trace fluid. N o well-defined transition point is not identified. Distal small bowel is relatively decompressed. No pathologically enlarged lymph nodes are present. There is no fluid collection to suggest an abscess. The appendix is normal. No acute fracture or suspicious lesion within the visualized skeletal structu res is present. IMPRESSION: Numerous loops of mildly dilated fluid-filled small bowel without well-defined transitio n point. Mild associated mesenteric infiltration and trace fluid. Relatively decompressed distal smal l bowel. The findings favor a partial small bowel obstruction. An enteritis with ileus is also within the differential. This finding will be called/faxed to ordering provider at time of dictation. ACT 112: Negative or not required by law. Electronically signed by: Matteo Hathaway M.D. 04/13/2022 7:15 AM
[2022-04-13 07:32] LABS: Hematocrit (blood only) 45.1 % (40.1-51.0); Hemoglobin 15.3 g/dl (14.0-18.0); Mean Corpuscular Hemoglobin 30.2 pg (25.0-34.0); Mean Corpuscular Hgb Conc 33.9 g/dL (32.0-36.0); RDW Coefficient of Variation 13.6 % (11.5-14.5); RDW Standard Deviation 44.1 fL (36.4-46.3); Red Blood Count 5.07 M/uL (4.63-6.08); White Blood Count 12.12 K/ul (4.8-10.8)
[2022-04-13 07:52] LABS: Basophils # (auto) 0.04 K/uL (0-0.2); Basophils % (auto) 0.3 %; Eosinophils # (auto) 0.33 K/uL (0-0.50); Eosinophils % (auto) 2.7 %; Immature Granulocytes # (auto) 0.05 K/uL (0.00-0.02); Immature Granulocytes % (auto) 0.4 %; Lymphocytes # (auto) 2.38 K/uL (1.2-3.4); Lymphocytes % (auto) 19.6 %; Mean Platelet Volume 13.4 fL (9.4-12.4); Monocytes # (auto) 0.92 K/uL (0.24-0.82); Monocytes % (auto) 7.6 %; Neutrophils % (auto) 69.4 %; Platelet Count 193 K/uL (130-400)
[2022-04-13 08:00] LABS: Albumin Globulin Ratio 1.5 (0.9-2); BUN Creatinine Ratio 18.7 (10-20); Bilirubin,Total 0.9 mg/dl (0.2-1.0); Calcium 8.9 mg/dl (8.5-10.1); Creatinine Clr Calc Pharmacy 147.7 ml/min; Est GFR (African American) 134.9 ml/min; Est GFR (Non-African American) 116.4 ml/min; Globulin 2.7 gm/dl (2.5-4.0); Potassium 3.8 mmol/L (3.5-5.1); Total Protein 6.7 gm/dl (6.0-8.3)
[2022-04-13] MEDS ORDERED: ROSUVASTATIN CALCIUM 10 MG TAB PO SCH (09:00)
--- NOTE | 2022-04-13 09:00 | Surgery Progress Note ---
Date of Service April 13, 2022 Assessment & Plan (1) Small bowel obstruction: Plan: Pt here with abdominal pain, n/v with CT scan findings of partial sbo vs enteritis/ileus. No abdominal PSH He is feeling mildly better. Still with some L abdominal pain, but no further n/v Can start some sips/chips for now while awaiting return of bowel function Pending further improvement in symptoms and once he starts passing flatus can consider clears and diet advancement NGT not necessary at this time unless pt develops n/v No plans for surgical intervention Admission and Anticipated Discharge Date Admission Date: April 12, 2022 Supervising Physician Co-Signing Physician Notes Patient seen and examined, labs and image reviewed, agree with above. 36-year-old obese male with history of omental infarction but no prior abdominal surgery presented with possible partial small bowel obstruction versus developing enteritis. He is feeling better and has passed some gas. He did have some emesis yesterday but none today. On exam he is afebrile stable vitals. His abdomen is soft, nontender, nondistended. KUB reviewed and showed slight increase in distention of the small bowel but there was air in the colon. We will continue n.p.o., hold off on NG tube for now. Surgery will follow, call with questions or concerns. Subjective Patient feeling somewhat better. Denies any nausea/vomiting currently. Still with some left lower abdominal discomfort he states is about the same as when he came in. No flatus/BM. Physical Exam Physical Exam: awake/alert, no distress Gastrointestinal (Abdomen): Inspection/Auscultation: + abdomen distended (mild) Percussion/Palpation: + abdomen tender (discomfort to palpation along left lower abdomen) and abdomen soft Results & Data ([facility]) Vital Signs (Past 12 Hours) Vital Signs Temp Pulse Pulse Resp BP BP Pulse Ox 04/13/22 07:45 36.5 C 80 16 119/75 94 04/13/22 01:29 36.5 C 96 H 15 129/87 91 04/13/22 01:12 79 16 111/58 L 96 04/13/22 00:11 90 18 112/73 96 04/12/22 21:56 76 18 142/67 H 97 O2 Del Method O2 Flow Rate 04/13/22 07:45 Nasal Cannula 2 04/13/22 01:29 Room Air 04/13/22 01:12 Nasal Cannula 2 04/13/22 00:11 Room Air 04/12/22 21:56 PG Care Time/CCT Total # of Minutes Spent Total Time Spent with Patient: Total time spent is greater than 50% in coordination of care (as documented) at patient's floor/unit and/or counseling patient: Coding Level of Care Code 31672 Subseq Hosp Care Lvl 1 Diagnoses Small bowel obstruction K56.609
--- NOTE | 2022-04-13 09:48 | Pharmacy Report ---
Pharmacy Glycemic Short Note 2 - Date of Service April 13, 2022 - Glycemic Short BSG Results (Last 24 hours): 04/12/22 04/13/22 04/13/22 20:19 06:20 06:23 Glucose 139 H 141 H POC Glucose 120 H OUTPATIENT ANTIDIABETIC REGIMEN: * Lantus 30 units SC HS * Trulicity 1.5 mg SC weekly * Jardiance 10 mg PO daily * Glimepiride 2 mg PO BID * Metformin 500 mg PO BID HbA1c: 7.7% (02/17/22) ASSESSMENT: * BC is a 36 year old male who presented to ED last evening with abdominal pain, secondary to SBO * Pertinent PMH includes T2DM (on multiple PO meds, GLP-1 RA, and insulin), obesity, hyperlipidemia, and hypertension * Patient is currently NPO given SBO with BSG of 120 mg/dL this morning and 117 mg/dL this afternoon PLAN FOR INPATIENT GLYCEMIC CONTROL: * Hold outpatient oral diabetes medications * Basal insulin * Lantus 0-15 units SC HS * Bolus insulin * NovoLog per scale ACHS or Q6hrs while NPO * Goal Range: Low 110 mg/dL - High 140 mg/dL * Correction Factor: 30 mg/dL/unit * Nutritional / Prandial insulin per carb ratio of 1 unit per 10 grams CHO consumed
--- NOTE | 2022-04-13 10:21 | XRay Report ---
KUB HISTORY: Small bowel obstruction. Follow-up. COMPARISON: Abdomen and pelvis CT 04/12/2022. FINDINGS: There is contrast within the bladder from the recent CT examination. Multiple dilated gas-f illed loops of small bowel are seen throughout the abdomen. This has progressed in the interval. Thes e measure up to 5.5 cm in diameter. No renal calculi. No ureteral calculi. Calcifications in the opal p pelvis likely represent phleboliths. No pneumoperitoneum or pneumatosis. IMPRESSION: Progressive small bowel obstruction pattern. ACT 112: Negative or not required by law. Electronically signed by: Raymond Blackwood M.D. 04/13/2022 10:20 AM
--- NOTE | 2022-04-13 15:18 | Hospitalist Progress Note ---
Date of Service April 13, 2022 Assessment & Plan (1) Small bowel obstruction: Plan: Patient is a 36 yo male with PMHx of HTN, hypothyroidism, HLD, DM2, and omental infarction admitted to [facility] on 04/12/22 for small bowel obstruction. Small bowel obstruction - CT abd 04/12/22 stat rad report: "dilated loops of fluid-filled small bowel measures up to 3.6 cm with a collapsed appearance of distal small bowel loops. Findings compatible with a small bowel obstruction potentially related to adhesions." - Admit to medsur - Conservative management with IV analgesic, IV antiemetic, IVF - NPO - Surgery consulted -- per recommendations, patient w/o emesis since this AM so can withhold on placing an NG at this time - Will continue to monitor - Repeat CBC and BMP in AM - KUB this AM shows some progression but clinically pt is no worse - Per GS, ok for ice chips and sips, would not advance diet any further at this time until passing flatus - Repeat KUB in AM - Encourage ambulation (2) Diabetes type 2, uncontrolled: Plan: - Most recent A1c 7.7% on 02/17/22 - Patient with home regimen including Trulicity, Jardiance, glimepiride, and insulin glargine. Home regimen held on admission. - Cover with basal bolus. - Glycemic consult placed (3) Hyperlipemia: Plan: - continue statin - pt would benefit from weight loss (4) HTN (hypertension): Plan: - Continue home lisinopril (5) Hypothyroidism: Plan: - continue synthroid Plan As above. Repeat KUB and labs in AM. Continue IVF. Sips and ice chips ok, but nothing more. Encourage ambulation. Plan d/w Dr. Loaiza, further orders as warranted. Admission and Anticipated Discharge Date Admission Date: April 12, 2022 Subjective Patient seen on daily rounds this morning. He is resting comfortably in bed, reports that he feels the abd pain is slightly better than yesterday, certainly no worse. Denies n/v. He denies flatus or BM. Review of Systems Review of Systems: All systems reviewed and are unremarkable except as noted in HPI and below. Denies fever, chills, fatigue, headache, nasal congestion, sore throat, cough, chest pain, shortness of breath, palpitations, orthopnea, PND, constipation, dysuria, hematuria, frequency, back pain, joint pain or swelling, easy bruising or bleeding, skin lesions or rashes. Physical Exam Physical Exam: GENERAL: 36 yo obese WM. NAD. LUNGS: Clear to auscultation bilaterally. No W/R/R. CARDIOVASCULAR: Regular rate and rhythm. No M/G/R. No JVD. ABDOMEN: Soft, minimally distended. BS in all 4 quad. Mild TTP across lower portion of abd and in epigastrium. EXTREMITIES: No edema. Non-tender. Peripheral pulses +2/4. NEUROLOGIC: A&O x3. PSYCHIATRIC: Cooperative. Appropriate mood and affect. SKIN: Warm, dry, intact. No rashes or lesions. Results & Data Results & Data ([facility]) Vital Signs (Past 12 Hours) Vital Signs Temp Pulse Resp BP Pulse Ox O2 Del Method O2 Flow Rate 04/13/22 07:45 36.5 C 80 16 119/75 94 Nasal Cannula 2 Diagnostic Findings KUB X-Ray 04/13/22 09:12 KUB HISTORY: Small bowel obstruction. Follow-up. COMPARISON: Abdomen and pelvis CT 04/12/2022. FINDINGS: There is contrast within the bladder from the recent CT examination. Multiple dilated gas-filled loops of small bowel are seen throughout the abdomen. This has progressed in the interval. These measure up to 5.5 cm in diameter. No renal calculi. No ureteral calculi. Calcifications in the deep pelvis likely represent phleboliths. No pneumoperitoneum or pneumatosis. IMPRESSION: Progressive small bowel obstruction pattern. ACT 112: Negative or not required by law. Electronically signed by: Raymond Blackwood M.D. 04/13/2022 10:20 AM PG Care Time/CCT Total # of Minutes Spent Total Time Spent with Patient: Total time spent is greater than 50% in coordination of care (as documented) at patient's floor/unit and/or counseling patient: Coding Level of Care Code 09220 Subseq Hosp Care Lvl 2 Diagnoses Small bowel obstruction K56.609 Diabetes type 2, uncontrolled E11.65 Glycemic state: with hyperglycemia Hyperlipemia E78.5 HTN (hypertension) I10 Hypothyroidism E03.9 Hypothyroidism type: acquired (1) Diabetes type 2, uncontrolled Glycemic state: with hyperglycemia Qualified Code(s): E11.65 - Type 2 diabetes mellitus with hyperglycemia (2) Hypothyroidism Hypothyroidism type: acquired Qualified Code(s): E03.9 - Hypothyroidism, unspecified
[2022-04-13] MEDS ORDERED: LANTUS PER UNIT CHARGE SQ SCH ×2 (21:00)
[2022-04-13] MEDS ORDERED: lisinopril 10 MG TAB PO SCH (21:00)
[2022-04-14] MEDS: INSULIN ASPART PER UNIT SC SCH ×5 (00:44→21:18)
[2022-04-14] MEDS: LACTATED RINGER'S 1,000 ML IV SCH ×2 (03:03→09:29)
[2022-04-14] MEDS: LEVOTHYROXINE SODIUM 175 MCG TABLET PO SCH (06:10)
[2022-04-14 06:33] LABS: Basophils # (auto) 0.03 K/uL (0-0.2); Basophils % (auto) 0.3 %; Eosinophils # (auto) 0.36 K/uL (0-0.50); Eosinophils % (auto) 3.6 %; Hematocrit (blood only) 41.9 % (40.1-51.0); Hemoglobin 14.3 g/dl (14.0-18.0); Immature Granulocytes # (auto) 0.03 K/uL (0.00-0.02); Immature Granulocytes % (auto) 0.3 %; Lymphocytes # (auto) 2.41 K/uL (1.2-3.4); Lymphocytes % (auto) 24.4 %; Mean Corpuscular Hemoglobin 30.1 pg (25.0-34.0); Mean Corpuscular Hgb Conc 34.1 g/dL (32.0-36.0); Mean Corpuscular Volume 88.2 fL (80.0-100.0); Mean Platelet Volume 12.9 fL (9.4-12.4); Monocytes # (auto) 0.73 K/uL (0.24-0.82); Monocytes % (auto) 7.4 %; Neutrophils # (auto) 6.32 K/uL (1.4-6.5); Platelet Count 174 K/uL (130-400); RDW Coefficient of Variation 13.3 % (11.5-14.5); RDW Standard Deviation 43.2 fL (36.4-46.3); Red Blood Count 4.75 M/uL (4.63-6.08); White Blood Count 9.88 K/ul (4.8-10.8)
[2022-04-14 06:49] LABS: BUN Creatinine Ratio 16.9 (10-20); Calcium 8.8 mg/dl (8.5-10.1); Creatinine Clr Calc Pharmacy 143.9 ml/min; Est GFR (African American) 133.4 ml/min; Est GFR (Non-African American) 115.1 ml/min
--- NOTE | 2022-04-14 09:53 | Surgery Progress Note ---
Date of Service April 14, 2022 Assessment & Plan (1) Small bowel obstruction: Plan: ileus or enteritis vs SBO KUB slightly improved start on sips check TSH Admission and Anticipated Discharge Date Admission Date: April 12, 2022 Supervising Physician Co-Signing Physician Notes Patient seen and examined, labs and image reviewed, agree with above. 36-year-old obese male with history of omental infarction but no prior abdominal surgery presented with possible partial small bowel obstruction versus developing enteritis or ileus. He continues to feel better and has been passing a lot of gas. No bowel movement yet.. On exam he is afebrile stable vitals. His abdomen is soft, mildly tender in left upper quadrant, moderately distended. KUB reviewed and showed stable distention of the small bowel but there was air in the colon. Patient is started on clears and is tolerating. We will slowly advance his diet as tolerated. If he should have recurrence of his symptoms and I would recommend a small bowel follow-through or CT scan with oral contrast. Subjective little less bloated, some flatus, no BM, no pain Physical Exam Gastrointestinal (Abdomen): Inspection/Auscultation: + abdomen distended Percussion/Palpation: abdomen soft; abdomen nontender Results & Data ([facility]) Vital Signs (Past 12 Hours) Vital Signs Temp Pulse Resp BP BP Pulse Ox O2 Del Method 04/14/22 07:46 36.7 C 79 16 139/82 94 Room Air 04/14/22 00:05 36.7 C 80 16 145/90 H 92 Room Air PG Care Time/CCT Total # of Minutes Spent Total Time Spent with Patient: Total time spent is greater than 50% in coordination of care (as documented) at patient's floor/unit and/or counseling patient: Coding Level of Care Code 58226 Subseq Hosp Care Lvl 1 Diagnoses Small bowel obstruction K56.609
--- NOTE | 2022-04-14 10:38 | XRay Report ---
KUB HISTORY: Small bowel obstruction. Follow-up. Abdominal distention. COMPARISON: KUB 04/13/2022. FINDINGS: Multiple dilated gas-filled loops and small bowel are again seen throughout the abdomen. Th dewayne have slightly progressed in the interval and now measures up to 5.9 cm in diameter. There is a sm all amount of gas within the colon and rectum. No renal calculi. No ureteral calculi. No pneumoperit oneum or pneumatosis. IMPRESSION: Slight progression of the small bowel obstruction. ACT 112: Negative or not required by law. Electronically signed by: Raymond Blackwood M.D. 04/14/2022 10:36 AM
[2022-04-14] MEDS ORDERED: Nursing to Pharmacy Communication SCH (11:30)
[2022-04-14] MEDS ORDERED: LANTUS PER UNIT CHARGE SQ ONE (12:30)
--- NOTE | 2022-04-14 13:49 | Pharmacy Report ---
Pharmacy Glycemic Short Note 2 - Date of Service April 14, 2022 - Glycemic Short BSG Results (Last 24 hours): 04/13/22 04/13/22 04/14/22 17:49 21:09 00:07 Glucose POC Glucose 109 H 100 H 119 H 04/14/22 04/14/22 04/14/22 05:53 06:11 11:43 Glucose 123 H POC Glucose 123 H 128 H OUTPATIENT ANTIDIABETIC REGIMEN: * Lantus 30 units SC HS * Trulicity 1.5 mg SC weekly * Jardiance 10 mg PO daily * Glimepiride 2 mg PO BID * Metformin 500 mg PO BID HbA1c: 7.7% (02/17/22) ASSESSMENT: 04/14/22: * BSGs very well-controlled yesterday with no insulin while NPO * Fasting BSG of 123 mg/dL this morning * Diet advanced today, 37 g of CHO documented at lunch - will order basal to start today 04/13/22: * BC is a 36 year old male who presented to ED last evening with abdominal pain, secondary to SBO * Pertinent PMH includes T2DM (on multiple PO meds, GLP-1 RA, and insulin), obesity, hyperlipidemia, and hypertension * Patient is currently NPO given SBO with BSG of 120 mg/dL this morning and 117 mg/dL this afternoon PLAN FOR INPATIENT GLYCEMIC CONTROL: * Hold outpatient oral diabetes medications * Basal insulin * Lantus 15 units SC x 1 with lunch * Lantus 0-15 units SC HS (see EHR for details) * Bolus insulin * NovoLog per scale ACHS or Q6hrs while NPO * Goal Range: Low 110 mg/dL - High 140 mg/dL * Correction Factor: 30 mg/dL/unit * Nutritional / Prandial insulin per carb ratio of 1 unit per 10 grams CHO consumed
--- NOTE | 2022-04-14 14:04 | Hospitalist Progress Note ---
Date of Service April 14, 2022 Assessment & Plan (1) Small bowel obstruction: Plan: Patient is a 36 yo male with PMHx of HTN, hypothyroidism, HLD, DM2, and omental infarction admitted to [facility] on 04/12/22 for small bowel obstruction. SBO v ileus - CT abd 04/12/22 stat rad report: "dilated loops of fluid-filled small bowel measures up to 3.6 cm with a collapsed appearance of distal small bowel loops. Findings compatible with a small bowel obstruction potentially related to adhesions." - Surgery consulted -- per recommendations, patient w/o emesis since this AM so can withhold on placing an NG at this time - Will continue to monitor - KUB this AM stable and now passing flatus - Advance diet to clear liquids - Stop IVF - Encourage ambulation - If continues to tolerate diet, can advance tomorrow AM and likely dc home (2) Diabetes type 2, uncontrolled: Plan: - Most recent A1c 7.7% on 02/17/22 - Patient with home regimen including Trulicity, Jardiance, glimepiride, and insulin glargine. Home regimen held on admission. - Cover with basal bolus. - Glycemic consult placed (3) Hyperlipemia: Plan: - continue statin - pt would benefit from weight loss (4) HTN (hypertension): Plan: - Continue home lisinopril (5) Hypothyroidism: Plan: - continue synthroid - random TSH check shows overcorrection at 0.09, order FT4 stat - consider reducing synthroid to 150 mcg Plan As above. Continue clear liquids today and advance in AM if continues to tolerate. Encourage pt to ambulate. Anticipate should be able to return home tomorrow if continues to tolerate diet. If cannot tolerate or returning abd pain or n/v, would obtain SBFT or CT ap with contrast. Appreciate input from surgical team. Plan d/w Dr. Loaiza, further orders as warranted. Admission and Anticipated Discharge Date Admission Date: April 12, 2022 Subjective Patient seen on daily rounds this morning. Reports that he is starting to pass flatus. No BM. No abd pain today. No n/v. Review of Systems Review of Systems: All systems reviewed and are unremarkable except as noted in HPI and below. Denies fever, chills, fatigue, headache, nasal congestion, sore throat, cough, chest pain, shortness of breath, palpitations, orthopnea, PND, constipation, dysuria, hematuria, frequency, back pain, joint pain or swelling, easy bruising or bleeding, skin lesions or rashes. Physical Exam Physical Exam: GENERAL: 36 yo obese WM. NAD. LUNGS: Clear to auscultation bilaterally. No W/R/R. CARDIOVASCULAR: Regular rate and rhythm. No M/G/R. No JVD. ABDOMEN: Soft, mildly distended. BS in all 4 quad. Mild TTP LUQ. EXTREMITIES: No edema. Non-tender. Peripheral pulses +2/4. NEUROLOGIC: A&O x3. PSYCHIATRIC: Cooperative. Appropriate mood and affect. SKIN: Warm, dry, intact. No rashes or lesions. Results & Data Results & Data ([facility]) Vital Signs (Past 12 Hours) Vital Signs Temp Pulse Resp BP Pulse Ox O2 Del Method 04/14/22 07:46 36.7 C 79 16 139/82 94 Room Air Laboratory Results 04/14/22 06:11 04/14/22 06:11 TSH=0.09 PG Care Time/CCT Total # of Minutes Spent Total Time Spent with Patient: Total time spent is greater than 50% in coordination of care (as documented) at patient's floor/unit and/or counseling patient: Coding Level of Care Code 49713 Subseq Hosp Care Lvl 2 Diagnoses Small bowel obstruction K56.609 Diabetes type 2, uncontrolled E11.65 Glycemic state: with hyperglycemia Hyperlipemia E78.5 HTN (hypertension) I10 Hypothyroidism E03.9 Hypothyroidism type: acquired (1) Diabetes type 2, uncontrolled Glycemic state: with hyperglycemia Qualified Code(s): E11.65 - Type 2 diabetes mellitus with hyperglycemia (2) Hypothyroidism Hypothyroidism type: acquired Qualified Code(s): E03.9 - Hypothyroidism, unspecified
[2022-04-14] MEDS ORDERED: LANTUS PER UNIT CHARGE SQ SCH (21:00)
[2022-04-15] MEDS: LEVOTHYROXINE SODIUM 175 MCG TABLET PO SCH (06:27)
--- NOTE | 2022-04-15 07:45 | Surgery Progress Note ---
Date of Service April 15, 2022 Assessment & Plan (1) Small bowel obstruction: Plan: resolving ileus/enteritis/SBO advance diet Admission and Anticipated Discharge Date Admission Date: April 12, 2022 Supervising Physician Co-Signing Physician Notes d/w HAIDER Crisostomo, agree with above. Resolving ileus/enteritis vs psbo. +flatus and bm. advance diet as tolerated to low fiber. surgery will follow peripherally, call with questions or concerns. Subjective increasing flatus, bowels moving, no nausea or pain Physical Exam Constitutional: WD/WN, vitals as above Gastrointestinal (Abdomen): Inspection/Auscultation: + abdomen distended (less) Percussion/Palpation: abdomen soft; abdomen nontender Results & Data ([facility]) Vital Signs (Past 12 Hours) Vital Signs Temp Pulse Resp BP Pulse Ox O2 Del Method 04/15/22 07:24 36.3 C L 74 18 146/86 H 94 Room Air 04/14/22 21:20 Room Air, CPAP 04/14/22 21:04 36.8 C 82 16 132/82 95 Room Air PG Care Time/CCT Total # of Minutes Spent Total Time Spent with Patient: Total time spent is greater than 50% in coordination of care (as documented) at patient's floor/unit and/or counseling patient: Coding Level of Care Code 89438 Subseq Hosp Care Lvl 1 Diagnoses Small bowel obstruction K56.609
--- NOTE | 2022-04-15 07:49 | Hospitalist Progress Note ---
Date of Service April 15, 2022 Assessment & Plan (1) Small bowel obstruction: Plan: Patient is a 36 yo male with PMHx of HTN, hypothyroidism, HLD, DM2, and omental infarction admitted to [facility] on 04/12/22 for small bowel obstruction. SBO v ileus - CT abd 04/12/22 stat rad report: "dilated loops of fluid-filled small bowel measures up to 3.6 cm with a collapsed appearance of distal small bowel loops. Findings compatible with a small bowel obstruction potentially related to adhesions." - Surgery consulted -- per recommendations, patient w/o emesis since this AM so can withhold on placing an NG at this time - Will continue to monitor - KUB this AM stable and now passing flatus - Advance diet to clear liquids - Stop IVF - Encourage ambulation - If continues to tolerate diet, can advance tomorrow AM and likely dc home (2) Diabetes type 2, uncontrolled: Plan: - Most recent A1c 7.7% on 02/17/22 - Patient with home regimen including Trulicity, Jardiance, glimepiride, and insulin glargine. Home regimen held on admission. - Cover with basal bolus. - Glycemic consult placed (3) Hyperlipemia: Plan: - continue statin - pt would benefit from weight loss (4) HTN (hypertension): Plan: - Continue home lisinopril (5) Hypothyroidism: Plan: - continue synthroid - random TSH check shows overcorrection at 0.09, order FT4 stat - consider reducing synthroid to 150 mcg Plan As above. Continue clear liquids today and advance in AM if continues to tolerate. Encourage pt to ambulate. Anticipate should be able to return home tomorrow if continues to tolerate diet. If cannot tolerate or returning abd pain or n/v, would obtain SBFT or CT ap with contrast. Appreciate input from surgical team. Plan d/w Dr. Loaiza, further orders as warranted. Admission and Anticipated Discharge Date Admission Date: April 12, 2022 Results & Data Results & Data ([facility]) Vital Signs (Past 12 Hours) Vital Signs Temp Pulse Resp BP Pulse Ox O2 Del Method 04/15/22 07:24 36.3 C L 74 18 146/86 H 94 Room Air 04/14/22 21:20 Room Air, CPAP 04/14/22 21:04 36.8 C 82 16 132/82 95 Room Air Laboratory Results 04/14/22 04/14/22 04/14/22 Range/Units 21:03 16:46 11:43 POC Glucose 108 H 132 H 128 H (70-99) mg/dl TSH (0.300-4.500) uIu/ml Free T4 (0.61-1.60) ng/dl 04/14/22 04/14/22 Range/Units 09:56 09:56 POC Glucose (70-99) mg/dl TSH 0.091 L (0.300-4.500) uIu/ml Free T4 1.10 (0.61-1.60) ng/dl PG Care Time/CCT Total # of Minutes Spent Total Time Spent with Patient: Total time spent is greater than 50% in coordination of care (as documented) at patient's floor/unit and/or counseling patient: Coding Diagnoses Small bowel obstruction K56.609 Diabetes type 2, uncontrolled E11.65 Glycemic state: with hyperglycemia Hyperlipemia E78.5 HTN (hypertension) I10 Hypothyroidism E03.9 Hypothyroidism type: acquired (1) Hypothyroidism Hypothyroidism type: acquired Qualified Code(s): E03.9 - Hypothyroidism, unspecified (2) Diabetes type 2, uncontrolled Glycemic state: with hyperglycemia Qualified Code(s): E11.65 - Type 2 diabetes mellitus with hyperglycemia
[2022-04-15] MEDS: INSULIN ASPART PER UNIT SC SCH ×3 (08:21→17:36)
--- NOTE | 2022-04-15 08:54 | XRay Report ---
KUB HISTORY: Follow up study in a patient with a small bowel obstruction f/u sbo COMPARISON: KUB 04/14/2022, CT 04/12/2022 FINDINGS: Persistent dilated air-filled loops of small bowel measure up to approximately 4.7 cm, prev iously 5.9 cm. There is also noted within the transverse colon. No renal calculi. No ureteral calcul i. No pneumoperitoneum or pneumatosis. No fracture. IMPRESSION: Persistent small bowel obstruction with mildly decreased distention compared to yesterday's exam. ACT 112: Negative or not required by law. The above report was generated using voice recognition software. It may contain grammatical, syntax o r spelling errors. Electronically signed by: Gordo Thorne M.D. 04/15/2022 8:53 AM
[2022-04-15 08:59] LABS: Albumin Globulin Ratio 1.8 (0.9-2); Albumin Level 3.9 gm/dl (3.4-5.0); BUN Creatinine Ratio 9.1 (10-20); Bilirubin,Total 0.9 mg/dl (0.2-1.0); Creatinine Clr Calc Pharmacy 143.9 ml/min; Est GFR (African American) 133.4 ml/min; Est GFR (Non-African American) 115.1 ml/min; Globulin 2.2 gm/dl (2.5-4.0); Magnesium 1.9 mg/dl (1.7-2.4); Potassium 3.9 mmol/L (3.5-5.1); Total Protein 6.1 gm/dl (6.0-8.3)
--- NOTE | 2022-04-15 09:07 | Pharmacy Report ---
Pharmacy Glycemic Short Note 2 - Date of Service April 15, 2022 - Glycemic Short BSG Results (Last 24 hours): 04/14/22 04/14/22 04/14/22 11:43 16:46 21:03 Glucose POC Glucose 128 H 132 H 108 H 04/15/22 04/15/22 08:00 08:12 Glucose 120 H POC Glucose 120 H OUTPATIENT ANTIDIABETIC REGIMEN: * Lantus 30 units SC HS * Trulicity 1.5 mg SC weekly * Jardiance 10 mg PO daily * Glimepiride 2 mg PO BID * Metformin 500 mg PO BID HbA1c: 7.7% (02/17/22) ASSESSMENT: 04/15/22: * Blood sugars well controlled, started diet yesterday, advancing today * Patient had 15 units basal yesterday, will give today at lunch with PRN HS dose, and then transition to HS administration time to match home regimen tomorrow * Continue CF/CR at this time 04/14/22: * BSGs very well-controlled yesterday with no insulin while NPO * Fasting BSG of 123 mg/dL this morning * Diet advanced today, 37 g of CHO documented at lunch - will order basal to start today 04/13/22: * BC is a 36 year old male who presented to ED last evening with abdominal pain, secondary to SBO * Pertinent PMH includes T2DM (on multiple PO meds, GLP-1 RA, and insulin), obesity, hyperlipidemia, and hypertension * Patient is currently NPO given SBO with BSG of 120 mg/dL this morning and 117 mg/dL this afternoon PLAN FOR INPATIENT GLYCEMIC CONTROL: * Hold outpatient oral diabetes medications * Basal insulin * Lantus 15 units SC x 1 with lunch * Lantus 0-15 units SC HS (see EHR for details) for tonight, then: * Lantus 15 units SC HS starting 04/16 * Bolus insulin * NovoLog per scale ACHS or Q6hrs while NPO * Goal Range: Low 110 mg/dL - High 140 mg/dL * Correction Factor: 30 mg/dL/unit * Nutritional / Prandial insulin per carb ratio of 1 unit per 10 grams CHO consumed
--- NOTE | 2022-04-15 09:59 | Discharge Summary ---
Date of Service April 15, 2022 Admission HPI Per Admitting Provider Patient is a 36 yo male with PMHx of HTN, HLD, DM2, and omental infarction who presented to the [facility] ED on 04/12/22 with abd pain. Patient states that around 12pm yesterday, he was sitting with family watching TV when he had an acute onset of left lower quadrant abdominal pain that progressively worsened. At worse, pain rated at a 7/10. Pain was vague and "difficult to describe" but was reminiscent of hx of omental infarction ~ 3 years ago (November 2018). Patient reports associated bloating, nausea, vomiting, and diarrhea. Last episode of emesis was at 0700 this morning (> 12 hours ago); there was no blood in the em esis. Diarrhea is brown liquid w/o blood. Patient also with decreased appetite; prior to onset of pain appetite had been normal. Patient did have COVID-19 about 2 weeks ago (tested positive on 03/30) which was managed at home; symptoms included fever, malaise, myalgia, sore throat, and cough. Symptoms resolved after about 3 days and have not recurred. Currently denies fever, chills, CP, SOB, or cough. In the ED, patient had an abd CT which revealed "dilated loops of fluid-filled small bowel measures up to 3.6 cm with a collapsed appearance of distal small bowel loops. Findings compatible with a small bowel obstruction potentially related to adhesions." Labs: mild leukocytosis with WBC 14.4. No anemia. Electrolytes wnl. Normal LFTs. Mild elevation in lipase at 94. Surgery was consulted who evaluated the patient in the ED prior to admission. Recommend conservative management at this time. Admission Exam Per Admitting Provider GENERAL: No acute distress. Well developed and well nourished. Vital signs reviewed as above. EYES: PERRLA. EOMI. Anicteric sclerae. + glasses. HENT: Moist mucous membranes. No pharyngeal erythema or exudates. RESPIRATORY: Clear to auscultation bilaterally. No wheezing, rales, or rhonchi. CARDIOVASCULAR: Regular rate and rhythm. No murmurs. No JVD. ABDOMEN: Abd is mildly distended but soft. Mild tenderness to palpation diffusely, most prominent in left lower quadrant. No rebound or guarding. Normal bowel sounds. Flexion at hips with straight leg raise does not increase abdominal pain. EXTREMITIES: No edema. Non-tender. SKIN: Warm, dry. NEUROLOGIC: A/O x3. Normal speech. No focal neurological deficits. CN II-XII grossly intact, but not individually tested. 5/5 strength in BUE and BLE. PSYCHIATRIC: Cooperative. Appropriate mood and affect. Principal Diagnosis Small Bowel Obstruction Discharge Exam General: WD/WN obese male walking in the room, NAD HEENT; head normocephalic, atraumatic, mmm, trachea midline without deviation, thick neck Resp: CTAB, no w/c/r, on room air CV: RRR, no m/r/g, no pitting edema/calf tenderness, pulses palpable GI: +BS (slightly hypoactive, but present 4 quadrants), minimal discomfort to deep palpation LUQ, no rebound/rigidity, +obese : no guerrier MSK/Neuro: moves all extremities, no focal deficits Skin: warm, dry Psych: AOX3, pleasant and cooperative Discharge Data Allergies Allergy/AdvReac Type Severity Reaction Status Date / Time No Known Allergies Allergy Verified 04/12/22 23:39 Consultations 04/12/22 22:29 Consult General Surgery Routine 04/12/22 22:38 ED Decision to Admit Stat Ordered Studies Abdomen/Pelvis CT 04/12/22 20:22 CT OF THE ABDOMEN AND PELVIS WITH CONTRAST CLINICAL HISTORY: Left lower quadrant pain, nausea and vomiting. COMPARISON STUDY: CT of the abdomen and pelvis August 15, 2019. TECHNIQUE: Following IV administration of 93 mL of Optiray, axial images of the abdomen and pelvis were obtained from the lung bases to the proximal femurs. Images were reviewed in the axial, sagittal, and coronal planes. IV contrast was administered without complication. Automated exposure control was utilized for the study. A dose lowering technique was utilized adhering to the principles of ALARA. CT DOSE: 1106.49 mGy.cm FINDINGS: Lung bases are unremarkable. A calcified granuloma within the right lower lobe is incidentally noted. No pneumatosis, free air or portal venous gas is present. There is hepatic steatosis. No hepatic lesions are present. No biliary or pancreatic ductal dilatation is present. Spleen, adrenal glands and pancreas are unremarkable with exception of a subcentimeter left renal lesion which has decreased in size since prior CT. This is benign. Numerous loops of mildly dilated mid small bowel are noted. These loops of fluid-filled. There is mild associated mesenteric infiltration and trace fluid. No well-defined transition point is not identified. Distal small bowel is relatively decompressed. No pathologically enlarged lymph nodes are present. There is no fluid collection to suggest an abscess. The appendix is normal. No acute fracture or suspicious lesion within the visualized skeletal structures is present. IMPRESSION: Numerous loops of mildly dilated fluid-filled small bowel without well-defined transition point. Mild associated mesenteric infiltration and trace fluid. Relatively decompressed distal small bowel. The findings favor a partial small bowel obstruction. An enteritis with ileus is also within the differential. This finding will be called/faxed to ordering provider at time of dictation. ACT 112: Negative or not required by law. Electronically signed by: Matteo Hathaway M.D. 04/13/2022 7:15 AM KUB X-Ray 04/13/22 09:12 KUB HISTORY: Small bowel obstruction. Follow-up. COMPARISON: Abdomen and pelvis CT 04/12/2022. FINDINGS: There is contrast within the bladder from the recent CT examination. Multiple dilated gas-filled loops of small bowel are seen throughout the abdomen. This has progressed in the interval. These measure up to 5.5 cm in diameter. No renal calculi. No ureteral calculi. Calcifications in the deep pelvis likely represent phleboliths. No pneumoperitoneum or pneumatosis. IMPRESSION: Progressive small bowel obstruction pattern. ACT 112: Negative or not required by law. Electronically signed by: Raymond Blackwood M.D. 04/13/2022 10:20 AM KUB X-Ray 04/14/22 08:00 KUB HISTORY: Small bowel obstruction. Follow-up. Abdominal distention. COMPARISON: KUB 04/13/2022. FINDINGS: Multiple dilated gas-filled loops and small bowel are again seen throughout the abdomen. These have slightly progressed in the interval and now measures up to 5.9 cm in diameter. There is a small amount of gas within the colon and rectum. No renal calculi. No ureteral calculi. No pneumoperitoneum or pneumatosis. IMPRESSION: Slight progression of the small bowel obstruction. ACT 112: Negative or not required by law. Electronically signed by: Raymond Blackwood M.D. 04/14/2022 10:36 AM KUB X-Ray 04/15/22 07:48 KUB HISTORY: Follow up study in a patient with a small bowel obstruction f/u sbo COMPARISON: KUB 04/14/2022, CT 04/12/2022 FINDINGS: Persistent dilated air-filled loops of small bowel measure up to approximately 4.7 cm, previously 5.9 cm. There is also noted within the transverse colon. No renal calculi. No ureteral calculi. No pneumoperitoneum or pneumatosis. No fracture. IMPRESSION: Persistent small bowel obstruction with mildly decreased distention compared to yesterday's exam. ACT 112: Negative or not required by law. The above report was generated using voice recognition software. It may contain grammatical, syntax or spelling errors. Electronically signed by: Gordo Thorne M.D. 04/15/2022 8:53 AM Hospital Course (1) Small bowel obstruction: Patient is a 36 yo male with PMHx of HTN, hypothyroidism, HLD, DM2, and omental infarction approximately 3 years ago in November 2018, admitted to [facility] on 04/12/22 for small bowel obstruction after acute onset LLQ abdominal pain with progressive worsening/bloating/nausea/vomiting and diarrhea. CTAP with dilated loops of fluid-filled small bowel measures up to 3.6 cm with a collapsed appearance of distal small bowel loops. Findings compatible with a small bowel obstruction potentially related to adhesions Could be related to prior omental infarction, however no other prior abdominal imaging General surgery consulted (rec for SBFT vs repeat CT if any worsening, however patient able to be managed conservatively) No need for NGT while inpatient IVF/pain control/electrolyte replacement as needed Diet advanced to low fiber/DM and tolerating and moving bowels Continue low fiber diet at discharge, bowel regimen KUB with improvement and tolerating low fiber/continued to move his bowels Recommended patient to have follow up outpatient for SBFT and UGI for further evaluation of stricture/other as cause. Never had EGD/c-scope in the past. F/u for Dr Guadarrama to be arranged at discharge. No night sweats/unexplained weight loss/fam hx colon ca or IBD reported Also note, recently started and increased on Trulicity as outpatient. Does have side effect/reports of SBO in patients, unknown, zelalem in males Rec to decrease back to the 0.75mg dose and f/u PCP vs discontinuing for now/monitoring sugars at home and alternative medications at d/c Also could consider underlying gastroparesis with hx DM, and can also f/u GI for such. Messaged PCP about concerns/follow up imaging recommendations in follow up evaluation. (2) Diabetes type 2, uncontrolled: Most recent A1c 7.7% on 02/17/22 - Patient with home regimen including Trulicity, Jardiance, glimepiride, and insulin glargine. Home regimen held on admission and placed on ISS Pharmacy consulted while inpatient, BSGs acceptable See above -- to back to 0.75mg trulicity vs dc in future if continued issues. Continue bowel regimen. Monitor BSGs at home/follow up with PCP for alternative agent (3) Hyperlipemia: continued statin - pt would benefit from weight loss, encouraged (4) HTN (hypertension): BP 146/86, outpatient lisinopril on hold while NPO on admission Now that diet advanced can resume at discharge, asymtpomatic from BP (5) Hypothyroidism: TSH 0.091 (prior wnl 0.31 in November) Ft4 wnl, t3 wnl Recommend outpatient repeat of these tests in the next 4 weeks/adjustments as needed vs consider reduction synthroid to 150mcg (would avoid to prevent constipation issues for now) If continued issues/consider f/u endocrinology, especially for DM if issues with continued use trulicity Total Time Total Time Spent Total Time Spent (In Minutes): 50 Discharge Plan Discharge Items Patient Disposition: Home - Self-Care Reason For Visit: SMALL BOWEL OBSTRUCTION Discharge Diagnosis: Small Bowel Obstruction Goals: You have been hospitalized for an acute medical problem. During your stay at [facility], we have made an effort to correct the problem that brought you to the hospital while keeping you as comfortable as possible. Medications were used to bring your condition under control and your discharge instructions will include directions for any medications you should take after leaving the hospital. Please make sure you see your Primary Care Provider as part of your follow up plan. Activity: Resume your previous activity Non-emergency contact: Primary Care Provider, Surgeon and Tube Winder Hand Call non-emergency contact if: you have any medication questions and your symptoms worsen Follow-up/Referrals: Bahman Guadarrama, [Physician] - (2 weeks : UGI and SBFT 's office will call to set up an appointment date and time however if you do not hear from them call central scheduling at [phone] opt.#[email or web address] to schedule the appointment.) Poppy Das CRNP [Primary Care Provider] - 04/20/22 3:00 pm Juwan Euceda DO, FACS [Physician] - 05/12/22 9:00 am (4 weeks) Diet: Carb Consistent or DM2 and Low Fiber Addtl Attending Provider Instructions: You have been hospitalized for a small bowel obstruction. This is felt to be related to adhesions, but as we discussed, without prior abdominal surgeries, it will be important to have follow up with your PCP and either GI/general surgery for a small bowel follow through study as an outpatient to look for any causes/areas of narrowing that could cause this issue. This could be related to the prior omental infarction in 2019, but we would like to make sure you follow up on this. I have put in to follow up with Dr Guadarrama from GI for an upper GI study as well. We also discussed this could have been contributed by your Trulicity and would recommend going back to your 0.75mg dose for now and follow up with your PCP to see about switching to something else. You should continue a low fiber diet for the next two weeks and advance as tolerated. Please continue to keep up with oral hydration. Please return to the ER with any increased abdominal pain, nausea, vomiting, inability to keep up with oral intake or for any other symptoms concerning for you. Please follow up with your PCP in the next 7 days to monitor your progress after discharge. You should have your thyroid levels checked as outpatient in another 4-6 weeks to see if you need any adjustments in this medication. It has been a pleasure being a part of the medical team taking care of you in the hospital. Take care! Pending Studies at Discharge: No Stand-Alone Forms: My [employer], Work/School Release Medications and DC Order Prescriptions: Continued (DME) lancets [OneTouch Delica Plus Lancet] 33 gauge misc See Dose Instructions .ROUTE .MEDSUPPLY Qty: 100 5RF Rx Instructions: As directed (DME) OneTouch Verio test strips Strip See Dose Instructions .ROUTE .MEDSUPPLY Qty: 100 5RF Rx Instructions: check blood sugar before meals lisinopril 10 mg tablet 10 mg PO HS Qty: 90 3RF Jardiance 10 mg tablet 10 mg PO DAILY Qty: 90 11RF glimepiride 2 mg tablet 2 mg PO BID Qty: 60 11RF insulin glargine [Basaglar KwikPen U-100 Insulin] 100 unit/mL (3 mL) insulin pen 30 unit SQ HS Qty: 15 11RF levothyroxine 175 mcg tablet 175 mcg PO DAILY Qty: 90 3RF metformin 500 mg tablet extended release 24 hr 500 mg PO BID Qty: 60 5RF (DME) pen needle, diabetic 32 gauge x 1/6" needle See Rx Instructions .Route Qty: 100 5RF Rx Instructions: Inject once or twice daily as instructed Dx: Type II Diabetes rosuvastatin 5 mg tablet 10 mg PO DAILY Qty: 90 3RF Changed dulaglutide 1.5 mg/0.5 mL pen injector 0.75 mg subcut WK Qty: 2 0RF Rx Instructions: take this med every Wednesday evening Discharge Orders: Discharge Order (Routine); Ordered 04/15/22 Ordered By: Angie Jimenez Admission Data Admit Date/Time: 04/12/22 23:27 Attending Provider: Stella Carlson Admit Provider: Nora Myrick Primary Care Provider: Poppy Das Other Providers: Juwan Euceda ; David Whitman Other Interventions: Discharge Summary Assessment (RN) Last Done: 04/15/22 10:45 Supervising Physician Co-Signing Physician Notes PA Supervision Note: I personally saw and examined the patient. I verified all craig points and agree with HAIDER Jimenez with the following exceptions and/or additions: S-Pt feeling much better, manav low fiber diet, pssing flatus and several BMs in the last 24 hrs. Is ambulating the halls. denies CP, SOB Understands need for SBFT and GI eval as outpt after discharge O- Vitals reviewed Gen: [AAOx3, NAD] HEENT: [anicteric sclerae, EOMI] CV: [RRR no mgr nl S1S2] Pulm: [CTAB no wcr] Abd: [+BS soft NT ND no masses or hernias] Ext: [no edema, 2+ DP pulses] Skin: [no rashes, warm/dry] Neuro: [full strength throughout] A/P-36 yo male here with SBO now resolved with conservative measures. Unclear etiology, needs further outpt GI eval as outlined above Coding Level of Care Code D/C DAY MANAGEMENT >30 MINS Diagnoses Small bowel obstruction K56.609 Diabetes type 2, uncontrolled E11.65 Glycemic state: with hyperglycemia Hyperlipemia E78.5 HTN (hypertension) I10 Hypothyroidism E03.9 Hypothyroidism type: acquired
[2022-04-15] MEDS ORDERED: LANTUS PER UNIT CHARGE SQ SCH (12:00)
== END 2022-04-15 18:16 | disposition home or self-care (01) | DRG 390 ==
LOC: ED 19:55 → 3E 23:27 → SUATTDRO 23:27 → 3E 04-13 01:12

== ENCOUNTER 2023-12-27 08:35 | Inpatient (IN) ==
--- NOTE | 2023-12-27 08:54 | Emergency Department Note ---
History of Present Illness General Chief complaint: Shortness of Breath/Dyspnea Stated complaint: sob, dizzy, illness Time Seen by Provider: 12/27/23 08:42 History of Present Illness Maximum Pain Intensity: 2 This is a 38-year-old male with a history of diabetes that presents to the emergency department via private vehicle accompanied by with complaints of "cough, shortness of breath, vomiting". The patient notes he was here in the ED recently for dyspnea and seemed to improve and then over the past few days worsened and acutely worsened today. He notes that he became lightheaded, had an elevated heart rate, has had a progressive cough today that is nonproductive as well as some vomiting. He notes the vomiting seems to be separate from the cough and is not posttussive. No hemoptysis. No hematemesis. Patient has a history of bowel obstruction as well as omental infarction. Patient denies any history of [place] or PE. Home Medications Medication Instructions Recorded Confirmed Type lancets 33 gauge (OneTouch Delica #100 ea 09/16/20 06/28/23 Rx Plus Lancet) pen needle, diabetic 32 gauge x #100 ea 01/23/21 06/28/23 Rx 1/6" blood sugar diagnostic (OneTouch #100 ea 12/29/21 06/28/23 Rx Verio test strips) lisinopril 10 mg tablet 10 mg PO HS #90 tabs 01/04/23 12/27/23 Rx empagliflozin 10 mg tablet 10 mg PO DAILY #90 tabs 02/01/23 12/27/23 Rx (Jardiance) insulin glargine 100 unit/mL (3 30 unit (0.3 mL) subcut HS #15 mL 06/28/23 12/27/23 Rx mL) subcutaneous pen (Lantus Solostar U-100 Insulin) levothyroxine 150 mcg tablet 150 mcg PO DAILY #90 tabs 06/28/23 12/27/23 Rx semaglutide 1 mg/dose (4 mg/3 mL) 1 mg (0.75 mL) subcut .COMPLEX #3 06/28/23 12/27/23 Rx subcutaneous pen injector mL sildenafil 25 mg tablet 25 mg PO DAILY PRN sexual activity 06/28/23 12/27/23 Rx #30 tabs flash glucose sensor (FreeStyle #2 ea 09/15/23 Rx Anna 2 Sensor kit) metformin 500 mg tablet,extended 500 mg PO BID #60 tabs 10/27/23 12/27/23 Rx release 24 hr rosuvastatin 10 mg tablet 10 mg PO QPM 12/27/23 12/27/23 History Allergies Allergy/AdvReac Type Severity Reaction Status Date / Time No Known Allergies Allergy Verified 06/28/23 15:33 Past Med/Surg History Problem List (Updated 12/27/23 @ 22:34 by Jim Rowland PA-C) Dyspnea (Acute) Mycoplasma pneumonia (Acute) Nausea & vomiting (Acute) Multifocal pneumonia (Acute) Erectile dysfunction HTN (hypertension) (Chronic) Hypothyroidism (Chronic) Diabetes type 2, uncontrolled (Chronic) Abnormal liver enzymes (Chronic) Insomnia (Chronic) Hyperlipemia (Chronic) Moderate obstructive sleep apnea (Chronic) Nocturnal hypoxemia (Chronic) Lateral epicondylitis (Chronic) Lateral epicondylitis of both elbows (Chronic) Left leg pain (Chronic) Symptomatic tachycardia (Chronic) Obesity, Class II, BMI 35-39.9 (Chronic) History of ileus Small bowel obstruction Medical History Hypothyroidism Hypotension DM type 2 (diabetes mellitus, type 2) Diabetes Pneumonia Influenza Nephrolithiasis Ureteral stone Family History Uncle Diabetes Grandfather (Maternal) COPD (chronic obstructive pulmonary disease) Mother Thyroid disease Father Cancer Other [place] disease Denies family history of Colon cancer Ovarian cancer Prostate cancer Myocardial infarction Breast cancer Social History Smoking Status: Current every day smoker Tobacco Type: Cigarettes packs per day: 1; Cigarettes Per Day: 1 Pack/ 20 cigarettes; Second Hand Exposure: No; Do You Dip or Chew Tobacco: Yes; Hx Alcohol Use: Yes Alcohol type: beer Alcohol Intake Frequency: Monthly or Less Hx Substance Use: No Preferred Language: Upper Sorbian Communication Ability: Effective Hearing Ability: Normal Air Carrier Inspector Required: No Beliefs That Will Affect Care: None marital status: Current Living Situation: Spouse current occupational status: employed current occupation: [employer] Other Information That Helps Us Care for You: No Feels Safe at Home: Yes Safety Concerns: Feels Safe At This Time Childhood Exposure to Second-Hand Smoke: No Diet Comment: Low Fiber Diet- 2 weeks post discharge caffeine: Yes Dental Care, Regularly: No Physical Activity Frequency: Does not Exercise Seatbelt Use: always Sunscreen Use: Yes Assistive Devices: CPAP and Glasses Review of Systems A total of 10 systems reviewed and were otherwise negative Physical Exam Vital Signs Vital Signs - 24 hr 12/27/23 08:39 12/27/23 09:04 12/27/23 09:06 Temperature 36.7 C Temperature Source Temporal Artery Scan Pulse Rate 105 H 98 H 106 H Pulse Rate from SpO2 Sensor Pulse Rhythm Regular Pulse Strength Normal Respiratory Rate 20 22 Respiratory Effort / Characteristics Non-Labored Spontaneous Respiratory Depth Normal Respiratory Pattern Regular Blood Pressure 133/75 Blood Pressure Mean 94 Blood Pressure Position Sitting Pulse Oximetry 94 Oxygen Delivery Method Room Air Sepsis Recent Fever Within 48 Hours No Sepsis New/Unexplained Change in Mental Status No Sepsis Action Taken by Nursing No Action Required 12/27/23 09:13 12/27/23 09:30 12/27/23 09:30 Temperature Temperature Source Pulse Rate 89 Pulse Rate from SpO2 Sensor 90 Pulse Rhythm Pulse Strength Respiratory Rate 30 H Respiratory Effort / Characteristics Respiratory Depth Respiratory Pattern Blood Pressure 123/83 Blood Pressure Mean 98 Blood Pressure Position Pulse Oximetry 90 90 Oxygen Delivery Method Room Air Sepsis Recent Fever Within 48 Hours Sepsis New/Unexplained Change in Mental Status Sepsis Action Taken by Nursing 12/27/23 10:09 12/27/23 10:16 12/27/23 11:03 Temperature Temperature Source Pulse Rate 90 84 Pulse Rate from SpO2 Sensor 85 Pulse Rhythm Pulse Strength Respiratory Rate 25 H 22 Respiratory Effort / Characteristics Respiratory Depth Respiratory Pattern Blood Pressure Blood Pressure Mean Blood Pressure Position Pulse Oximetry 91 91 Oxygen Delivery Method Room Air Sepsis Recent Fever Within 48 Hours Sepsis New/Unexplained Change in Mental Status Sepsis Action Taken by Nursing VITAL SIGNS - Vital signs and nursing notes were reviewed. Stable and afebrile, mildly tachycardic at 105. GENERAL -28-year-old male appearing his stated age who is in no acute distress. Communicates well with provider and answers questions appropriately. SKIN - Without rashes. No meningeal or petechial rash. HEAD - NC/AT. EYES - PERRL with EOMI bilaterally. Sclera anicteric. EARS - No deformities of external structures noted on gross examination bilaterally. External auditory canals without discharge or otorrhea. Tympanic membranes pearly witt without retraction or bulging. No fluid or purulent material visualized behind the TM. Handle of malleus, umbo, cone of light, pars tensa/flaccid all easily visualized. NOSE - Midline and without cyanosis. No epistaxis or purulent drainage noted. Septum midline without deviation or septal hematoma noted. MOUTH/OROPHARYNX - Without perioral cyanosis. Buccal mucosa pink and moist and without leukoplakia. Tongue midline with equal elevation of palate bilaterally. No tonsillar hypertrophy, erythema, or exudates noted. Good dentition noted. NECK - Neck with FROM. Supple to palpation. No lymphadenopathy noted. No nuchal rigidity. LUNGS - Mild tachypnea, breath sounds mildly diminished bilaterally but otherwise without wheezing. No stridor. CARDIAC - RRR with S1/S2. No murmur, rubs, or gallops appreciated. ABDOMEN - Abdominal contour normal without pulsations or visible masses. BS normoactive all four quadrants. No tenderness, palpable masses, hepatosplenomegaly, or ascites noted. EXTREMITIES - No clubbing or peripheral cyanosis. +5/5 strength noted in UE/LE bilaterally. NEUROLOGIC - Cranial nerves II through XII grossly intact. PSYCH - A&O, and cooperates fully with examiner. Pt is very pleasant and interacts well with examiner. Course Administered Medications Aspirin (Aspirin 81 Mg Ectab) 81 mg PO QPM [facility]O Stop: 01/26/24 20:59 Last Admin: 12/27/23 20:50 Dose: 81 mg Documented By: MEHUL Enoxaparin Sodium (Enoxaparin Inj 40 Mg/0.4 Ml Syr) 40 mg SQ Q24H [facility]O Stop: 01/26/24 20:59 Last Admin: 12/27/23 20:48 Dose: 40 mg Documented By: MEHUL Guaifenesin (Guaifenesin 600 Mg Tabcr) 1,200 mg PO Q12 [facility] Stop: 01/26/24 20:59 Last Admin: 12/27/23 20:49 Dose: 1,200 mg Documented By: MEHUL Doxycycline Hyclate 100 mg/ (Dextrose) 100 mls @ 50 mls/hr IV Q12H [facility] Stop: 01/03/24 13:59 Last Infusion: 12/27/23 18:03 Dose: Infused Documented By: Admin: 12/27/23 15:29 Dose: 50 mls/hr Documented By: MEHUL Piperacillin Sod/Tazobactam (Sod 4.5 gm/ Dextrose) 100 mls @ 25 mls/hr IV Q8H [facility]; Protocol Stop: 01/03/24 15:59 Last Infusion: 12/27/23 21:29 Dose: Infused Documented By: Admin: 12/27/23 17:27 Dose: 25 mls/hr Documented By: MEHUL Insulin Aspart (Insulin Aspart Per Unit Charge) 0 units SC ACHS [facility]O Stop: 01/26/24 16:29 Last Admin: 12/27/23 20:50 Dose: 2 units Documented By: MEHUL Co-signed By: GREG Admin: 12/27/23 18:59 Dose: 7 units Documented By: MEHUL Co-signed By: Insulin Glargine (Lantus Per Unit Charge) 15 units SQ BID [facility] Stop: 01/26/24 20:59 Last Admin: 12/27/23 21:27 Dose: 15 units Documented By: MEHUL Co-signed By: GREG Lisinopril (Lisinopril 10 Mg Tab) 10 mg PO HS [facility] Stop: 01/26/24 20:59 Last Admin: 12/27/23 20:50 Dose: 10 mg Documented By: MEHUL Rosuvastatin Calcium (Rosuvastatin Calcium 10 Mg Tab) 10 mg PO QPM [facility] Stop: 01/26/24 20:59 Last Admin: 12/27/23 20:50 Dose: 10 mg Documented By: MEHUL Discontinued Medications Guaifenesin (Guaifenesin 600 Mg Tabcr) 1,200 mg PO NOW ONE Stop: 12/27/23 11:38 Last Admin: 12/27/23 12:45 Dose: 1,200 mg Documented By: YENI Sodium Chloride (Nss) 1,000 mls @ 500 mls/hr IV .Q2H [facility] Stop: 12/27/23 10:59 Last Infusion: 12/27/23 11:26 Dose: Infused Documented By: Admin: 12/27/23 09:13 Dose: 500 mls/hr Documented By: YENI Piperacillin Sod/Tazobactam Sod (Zosyn) 4.5 gm in 100 mls @ 200 mls/hr IV NOW ONE Stop: 12/27/23 11:09 Last Infusion: 12/27/23 15:35 Dose: Infused Documented By: Admin: 12/27/23 11:26 Dose: 200 mls/hr Documented By: YENI Ioversol (Optiray 320 125ml) 119 ml IV ONCE ONE Stop: 12/27/23 10:01 Last Admin: 12/27/23 10:01 Dose: 119 ml Documented By: DAR Medical Decision Making Laboratory Data 12/27/23 09:00 12/27/23 09:00 Lab Results 12/27/23 12/27/23 12/27/23 Range/Units 09:00 11:12 11:25 WBC 13.30 H (4.8-10.8) K/ul RBC 5.19 (4.70-6.10) M/uL Hgb 16.0 (14.0-18.0) g/dl Hct 45.5 (42.0-52.0) % MCV 87.7 (80.0-100.0) fL MCH 30.8 (25.0-34.0) pg MCHC 35.2 (32.0-36.0) g/dL RDW Std Deviation 42.2 (36.4-46.3) fL RDW Coeff of Javier 13.1 (11.5-14.5) % Plt Count 205 (130-400) K/uL MPV 12.2 (9.4-12.4) fL Immature Gran % (Auto) 0.7 % Neut % (Auto) 73.6 % Lymph % (Auto) 19.2 % [place] % (Auto) 5.3 % Eos % (Auto) 0.9 % Baso % (Auto) 0.3 % Neut # (Auto) 9.79 H (1.40-6.50) K/uL Lymph # (Auto) 2.55 (1.20-3.40) K/uL [place] # (Auto) 0.71 H (0.11-0.59) K/uL Eos # (Auto) 0.12 (0.00-0.50) K/uL Baso # (Auto) 0.04 (0.00-0.20) K/uL Immature Gran # (Auto) 0.09 (0.01-0.20) K/uL PT 10.7 (9.0-12.0) Seconds INR 1.0 (0.9-1.1) APTT 27 (21-31) Seconds PTT Ratio 1.0 Sodium 135 L (136-145) mmol/L Potassium 4.2 (3.5-5.1) mmol/L Chloride 102 (98-107) mmol/L Carbon Dioxide 26 (21-32) mmol/L Anion Gap 7 (3-11) BUN 13 (6-23) mg/dl Creatinine 0.76 (0.6-1.4) mg/dl Est Cr Clr Drug Dosing 141.0 ml/min Est GFR ( Amer) 132.3 ml/min Est GFR (Non-Af Amer) 114.1 ml/min BUN/Creatinine Ratio 17.1 (10-20) Glucose 174 H (70-99(Fasting)) mg/dl Calcium 9.9 (8.6-10.3) mg/dl Magnesium 1.8 (1.7-2.4) mg/dl Total Bilirubin 0.6 (0.2-1.0) mg/dl AST 15 (13-39) U/L ALT 17 (7-52) U/L Alkaline Phosphatase 78 (34-104) U/L Troponin I High Sens 4.2 (0-20) pg/ml Total Protein 7.7 (6.0-8.3) gm/dl Albumin 4.2 (3.4-5.0) gm/dl Globulin 3.5 (2.5-4.0) gm/dl Albumin/Globulin Ratio 1.2 (0.9-2) Lipase 31 (11-82) U/L Procalcitonin 0.04 (0-0.5) ng/ml TSH 0.623 (0.300-4.500) uIu/ml Nasal Screen MRSA (PCR) Negative (Negative) Adenovirus (PCR) Not Detected (NotDetected) B. pertussis DNA (PCR) Not Detected (NotDetected) B.parapertussis DNA PCR Not Detected (NotDetected) C. pneumoniae DNA (PCR) Not Detected (NotDetected) Coronavirus OC43 (PCR) Not Detected (NotDetected) Coronavirus HKU1 (PCR) Not Detected (NotDetected) Coronavirus 229E (PCR) Not Detected (NotDetected) SARS-CoV-2 (PCR) Not Detected (NotDetected) Coronavirus NL63 (PCR) Not Detected (NotDetected) Human Metapneumovir PCR Not Detected (NotDetected) Influenza Type A (PCR) Not Detected (NotDetected) Influenza Type B (PCR) Not Detected (NotDetected) M. pneumoniae (PCR) DETECTED A (NotDetected) Parainfluenza 1 (PCR) Not Detected (NotDetected) Parainfluenza 2 (PCR) Not Detected (NotDetected) Parainfluenza 3 (PCR) Not Detected (NotDetected) Parainfluenza 4 (PCR) Not Detected (NotDetected) RSV (PCR) Not Detected (NotDetected) Entero/Rhino (PCR) DETECTED A (NotDetected) Imaging Data Radiologist's Impression: Abdomen/Pelvis CT 12/27/23 08:[address] WITH IV CONTRAST HISTORY: Acute onset abdominal pain dyspnea, cough, emesis TECHNIQUE: Multiaxial CT images of the abdomen and pelvis were performed following the IV administration of 119 cc of Optiray, A dose lowering technique was utilized adhering to the principles of ALARA. COMPARISON STUDY: 11/04/2022 FINDINGS: Coronary artery calcifications. Diffuse tree-in-bud nodules with bibasilar groundglass densities. Associated bronchial wall thickening with mild mucous plugging. No free air. Spleen is upper limits of normal in size. Hepatomegaly with hepatic steatosis. Unremarkable pancreas, gallbladder and adrenal glands. Patency of the hepatic and portal veins. Mild nonspecific bilateral perinephric stranding. No hydronephrosis. Urinary bladder wall thickening with partial distention. No abdominal aortic aneurysm or lymphadenopathy. No bowel obstruction or bowel wall thickening. Colonic diverticulosis. No CT evidence of acute appendicitis. Unremarkable soft tissues. Chronic pars defects at L5 with unchanged L5-S1 anterolisthesis. No acute fracture. IMPRESSION: 1. Bronchitis with infectious or inflammatory bronchiolitis. 2. No bowel obstruction or bowel wall thickening. 3. Hepatomegaly with hepatic steatosis. ACT 112: Negative or not required by law. The above report was generated using voice recognition software. It may contain grammatical, syntax or spelling errors. Electronically signed by: Gordo Thorne M.D. 12/27/2023 10:48 AM MDM Narrative Patient was seen and evaluated as above in room B10. Review was performed of triage nursing notes and vital signs. I did review pertinent previous visits and patient history. After obtaining a thorough history and physical examination the above work up was performed. Patient presents to us today for assessment of a cough, nausea and vomiting. Patient tachypneic on arrival and mildly tachycardic. Options of care were discussed with the patient. IV access was established. Labs were drawn. Leukocytosis 13.3. No anemia. Coags normal. Mild hyponatremia 135. No evidence of kidney or liver failure. Hyperglycemia 174. TSH reveals euthyroid state. CT of the chest as well as abdomen/pelvis imaging was obtained. Multifocal pneumonia noted. No PE. CT scan of the abdomen/pelvis reveals also bronchitis with infectious or inflammatory bronchiolitis. No bowel obstruction. Hepatomegaly with hepatic steatosis per radiologist as above. Patient with the vomiting and worsening symptoms at this time I do believe would benefit from inpatient management. Antibiotics at this time are indicated. Will proceed with Zosyn to cover for any potential aspiration on top of the pneumonia leading to the vomiting. Hydration also provided intravenously. Case discussed with hospitalist service. Please refer to further documentation regarding his stay. [employer] respiratory panel added later in the patient's stay and was positive for mycoplasma pneumonia and rhinovirus. Atypical coverage added by medicine team. EKG reveals normal sinus rhythm at a rate of 88 bpm. QTc 411. QRS 96. No ST elevation. This was compared to the EKG of December 08, 2023 and no significant change was found. In the evaluation and treatment of this patient the following differential diagnoses entertained: Pneumonia, PE, bowel obstruction, among others Impression & Plan Multifocal pneumonia, Nausea & vomiting, Mycoplasma pneumonia, Dyspnea Discharge Plan Visit Data Chief Complaint: Shortness of Breath/Dyspnea Stated Complaint: sob, dizzy, illness ED Provider: Andrea Kennedy ED Midlevel Provider: Jim Rowland Discharge Problem: Multifocal pneumonia, Nausea & vomiting, Mycoplasma pneumonia, Dyspnea Patient Disposition: Admitted As Inpatient Condition: Good Discharge Instructions Interventions: ED Discharge Assessment Last Done: 12/27/23 22:26
[2023-12-27] MEDS: SODIUM CHLORIDE 0.9% 1,000 ML IV SCH (09:13)
[2023-12-27 09:44] LABS: Basophils # (auto) 0.04 K/uL (0.00-0.20); Basophils % (auto) 0.3 %; Eosinophils # (auto) 0.12 K/uL (0.00-0.50); Eosinophils % (auto) 0.9 %; Hematocrit (blood only) 45.5 % (42.0-52.0); Immature Granulocytes # (auto) 0.09 K/uL (0.01-0.20); Immature Granulocytes % (auto) 0.7 %; Lymphocytes # (auto) 2.55 K/uL (1.20-3.40); Lymphocytes % (auto) 19.2 %; Mean Corpuscular Hemoglobin 30.8 pg (25.0-34.0); Mean Corpuscular Hgb Conc 35.2 g/dL (32.0-36.0); Mean Corpuscular Volume 87.7 fL (80.0-100.0); Mean Platelet Volume 12.2 fL (9.4-12.4); Monocytes # (auto) 0.71 K/uL (0.11-0.59); Monocytes % (auto) 5.3 %; Neutrophils # (auto) 9.79 K/uL (1.40-6.50); Neutrophils % (auto) 73.6 %; Platelet Count 205 K/uL (130-400); RDW Coefficient of Variation 13.1 % (11.5-14.5); RDW Standard Deviation 42.2 fL (36.4-46.3); Red Blood Count 5.19 M/uL (4.70-6.10)
[2023-12-27 09:51] LABS: Albumin Globulin Ratio 1.2 (0.9-2); Albumin Level 4.2 gm/dl (3.4-5.0); BUN Creatinine Ratio 17.1 (10-20); Bilirubin,Total 0.6 mg/dl (0.2-1.0); Calcium 9.9 mg/dl (8.6-10.3); Est GFR (African American) 132.3 ml/min; Est GFR (Non-African American) 114.1 ml/min; Globulin 3.5 gm/dl (2.5-4.0); Magnesium 1.8 mg/dl (1.7-2.4); Potassium 4.2 mmol/L (3.5-5.1); Total Protein 7.7 gm/dl (6.0-8.3)
[2023-12-27 09:56] LABS: Troponin I High Sensitivity 4.2 pg/ml (0-20)
[2023-12-27 10:01] LABS: Partial Thromboplastin Time 27 Seconds (21-31); Prothrombin Time 10.7 Seconds (9.0-12.0)
[2023-12-27] MEDS: OPTIRAY 320 125ml IV ONE (10:01)
[2023-12-27 10:06] LABS: Thyroid Stimulating Hormone 0.623 uIu/ml (0.300-4.500)
--- NOTE | 2023-12-27 10:18 | CT Scan Report ---
CT angio chest PE protocol CLINICAL HISTORY: dyspnea, cough, emesis TECHNIQUE: Multidetector row helical CT of the chest was performed with angiographic protocol. Wiseman l and sagittal reformations were obtained. Coronal and sagittal MIPS were obtained from the axial erica a set and were submitted for review. Automated dose lowering techniques and/or adjustment according to patient size were utilized for this exam. CT DOSE: 2510.88 mGy.cm Comparison: Comparison is made to chest radiograph 12/08/2023 FINDINGS: Lungs and pleura: Tree-in-bud nodularity and groundglass opacities are seen most prominently in the b ilateral lower lobes but present throughout. Heart and pericardium: Heart size is normal. No pericardial effusion. Vessels: No evidence of pulmonary embolism. Mediastinum and jose f: Subcentimeter lymph nodes are seen. Chest wall and lower neck: Unremarkable. Abdomen: Unremarkable. Bones: Minimal degenerative changes are seen. IMPRESSION: 1. No pulmonary embolus. 2. Findings compatible with multifocal pneumonia with reactive lymphadenopathy. ACT 112: Negative or not required by law. Electronically signed by: George Ge M.D. 12/27/2023 10:16 AM
--- NOTE | 2023-12-27 10:50 | CT Scan Report ---
ABDOMEN AND PELVIS CT WITH IV CONTRAST HISTORY: Acute onset abdominal pain dyspnea, cough, emesis TECHNIQUE: Multiaxial CT images of the abdomen and pelvis were performed following the IV administrat ion of 119 cc of Optiray, A dose lowering technique was utilized adhering to the principles of ALARA . COMPARISON STUDY: 11/04/2022 FINDINGS: Coronary artery calcifications. Diffuse tree-in-bud nodules with bibasilar groundglass dens ities. Associated bronchial wall thickening with mild mucous plugging. No free air. Spleen is upper l imits of normal in size. Hepatomegaly with hepatic steatosis. Unremarkable pancreas, gallbladder and adrenal glands. Patency of the hepatic and portal veins. Mild nonspecific bilateral perinephric stranding. No hydronephrosis. Urinary bladder wall thickening with partial distention. No abdominal aortic aneurysm or lymphadenopathy. No bowel obstruction or bow el wall thickening. Colonic diverticulosis. No CT evidence of acute appendicitis. Unremarkable soft t issues. Chronic pars defects at L5 with unchanged L5-S1 anterolisthesis. No acute fracture. IMPRESSION: 1. Bronchitis with infectious or inflammatory bronchiolitis. 2. No bowel obstruction or bowel wall thickening. 3. Hepatomegaly with hepatic steatosis. ACT 112: Negative or not required by law. The above report was generated using voice recognition software. It may contain grammatical, syntax o r spelling errors. Electronically signed by: Gordo Thorne M.D. 12/27/2023 10:48 AM
--- NOTE | 2023-12-27 11:01 | History & Physical Report ---
Date of Service December 27, 2023 Assessment & Plan (1) Multifocal pneumonia: Plan: Worsening SOB, cough, fever x 1 week, with vomiting the morning of 12/26 Chest CTA consistent with multifocal pneumonia and reactive lymphadenopathy Leukocytosis at 13.30 with a neutrophil predominance; afebrile BioFire pending Procalcitonin pending MRSA swab ordered, pending Zosyn 4.5 g IV q8h to cover for possible aspiration PNA Follow blood cx Guaifenesin 1200 mg p.o. BID for cough Acetaminophen as needed for fever/pain Incentive spirometry, flutter valve Supplemental oxygen as needed to maintain SpO2 >94% Continuous pulse oximetry A.m. CBC, BMP, mag (2) Diabetes type 2, uncontrolled: Plan: Last A1c at 7.5% on 06/24/2023 Hold metformin, Ozempic, Januvia Patient is normally on insulin glargine 30u HS Lantus 15u BID while inpatient SSI; with target BSG range 110-140mg/dL, CF 25, carb ratio 10 T2DM diet BSG ACHS Adjust regimen as needed AM A1c (3) Moderate obstructive sleep apnea: Plan: CPAP HS (4) Hyperlipemia: Plan: Continue rosuvastatin (5) Hypothyroidism: Plan: Continue levothyroxine Plan Disposition: Obs - Admit to [facility] telemetry Full code T2DM diet VTE PX: Lovenox 40 mg SQ q24h History of Present Illness Chief Complaint: SOB/Dyspnea Primary Care Provider: ERIC Amaro Mayuri is a 38-year-old male with PMH of T2DM, hypothyroidism, HTN, hyperlipidemia, moderate WILD, small bowel obstruction, and ileus. He presented for worsening SOB and fever x 6 days, with acute onset of dizziness and vomiting the morning of 12/26. Patient reports that he has had a cough since last Wednesday 12/20. His son (17-year-old) was recently sick on the previous 12/15 with a 103 F fever, and was placed on antibiotics for pneumonia. Patient has been exhibiting a dry cough, chest congestion, and then developed fever and chills over the weekend. He reports that he woke up soaked in sweat the morning of 12/26, and thought perhaps he broke his fever, but then started vomiting outside while walking to his car. He felt dizzy after throwing up and had to lean against his truck. He does not believe he aspirated when vomiting, but is unsure. He endorses SOB both at rest and with exertion; worse when he lies flat on his back. No supplemental oxygen at home, but patient does use a CPAP at night and reports good consistency. Patient tried taking an inhaler at home, but this did not help. He is also been rotating Advil cold/sinus, ibuprofen, and DayQuil with minimal benefit. He has had some relief from cough syrup (Mucinex and Benadryl) which she takes at night. No history of DVT/PE, COPD, AR, stroke, or CHF. Patient is a current everyday tobacco cigarette smoker; 12 PPD; declines nicotine patch while inpatient. He denies alcohol use. Patient took all of his regular morning medications, except for metformin. No recent change in medications. He was previously on glimepiride for T2DM, but stopped taking it a year ago when he was placed on Ozempic. Patient's SpO2 was 91% on RA at time of admission; vitals otherwise stable. ED course: Zosyn 4.5 g IV ROS: Patient endorses fever, chills, night-sweats, lightheadedness/dizziness with movements, rib pain (from coughing), SOB at rest and [place], orthopnea, productive cough, pleuritic CP, Patient denies fainting, chest pain, chest palpitations, hemoptysis, abdominal pain, hematemesis, leg swelling, Allergies Allergy/AdvReac Type Severity Reaction Status Date / Time No Known Allergies Allergy Verified 06/28/23 15:33 Home Medications Medication Instructions Recorded Confirmed Type lancets 33 gauge (Tegile SystemsTouch Delica #100 ea 09/16/20 06/28/23 Rx Plus Lancet) pen needle, diabetic 32 gauge x #100 ea 01/23/21 06/28/23 Rx 1/6" blood sugar diagnostic (Tegile SystemsTouch #100 ea 12/29/21 06/28/23 Rx Verio test strips) lisinopril 10 mg tablet 10 mg PO HS #90 tabs 01/04/23 12/27/23 Rx empagliflozin 10 mg tablet 10 mg PO DAILY #90 tabs 02/01/23 12/27/23 Rx (Jardiance) insulin glargine 100 unit/mL (3 30 unit (0.3 mL) subcut HS #15 mL 06/28/23 12/27/23 Rx mL) subcutaneous pen (Lantus Solostar U-100 Insulin) levothyroxine 150 mcg tablet 150 mcg PO DAILY #90 tabs 06/28/23 12/27/23 Rx semaglutide 1 mg/dose (4 mg/3 mL) 1 mg (0.75 mL) subcut .COMPLEX #3 06/28/23 12/27/23 Rx subcutaneous pen injector mL sildenafil 25 mg tablet 25 mg PO DAILY PRN sexual activity 06/28/23 12/27/23 Rx #30 tabs flash glucose sensor (FreeStyle #2 ea 09/15/23 Rx Anna 2 Sensor kit) metformin 500 mg tablet,extended 500 mg PO BID #60 tabs 10/27/23 12/27/23 Rx release 24 hr rosuvastatin 10 mg tablet 10 mg PO QPM 12/27/23 12/27/23 History Past Med/Surg History Problem List (Updated 12/27/23 @ 11:16 by Jim Rowland PA-C) Nausea & vomiting (Acute) Multifocal pneumonia (Acute) Erectile dysfunction HTN (hypertension) (Chronic) Hypothyroidism (Chronic) Diabetes type 2, uncontrolled (Chronic) Abnormal liver enzymes (Chronic) Insomnia (Chronic) Hyperlipemia (Chronic) Moderate obstructive sleep apnea (Chronic) Nocturnal hypoxemia (Chronic) Lateral epicondylitis (Chronic) Lateral epicondylitis of both elbows (Chronic) Left leg pain (Chronic) Symptomatic tachycardia (Chronic) Obesity, Class II, BMI 35-39.9 (Chronic) History of ileus Small bowel obstruction Medical History Hypothyroidism Hypotension DM type 2 (diabetes mellitus, type 2) Diabetes Pneumonia Influenza Nephrolithiasis Ureteral stone Family History Uncle Diabetes Grandfather (Maternal) COPD (chronic obstructive pulmonary disease) Mother Thyroid disease Father Cancer Other [place] disease Denies family history of Colon cancer Ovarian cancer Prostate cancer Myocardial infarction Breast cancer Social History Smoking Status: Current every day smoker Tobacco Type: Cigarettes packs per day: 1; Cigarettes Per Day: 1 Pack/ 20 cigarettes; Second Hand Exposure: No; Do You Dip or Chew Tobacco: Yes; Hx Alcohol Use: Yes Alcohol type: beer Alcohol Intake Frequency: Monthly or Less Hx Substance Use: No Preferred Language: Mongolian Communication Ability: Effective Hearing Ability: Normal 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 Beliefs That Will Affect Care: None marital status: Current Living Situation: Spouse current occupational status: employed current occupation: [employer] [place] [employer] Feels Safe at Home: Yes Childhood Exposure to Second-Hand Smoke: No Diet Comment: Low Fiber Diet- 2 weeks post discharge caffeine: Yes Dental Care, Regularly: No Physical Activity Frequency: Does not Exercise Seatbelt Use: always Sunscreen Use: Yes Assistive Devices: Glasses Review of Systems Review of Systems: See HPI above Physical Exam Physical Exam: General: Dry cough and mild respiratory distress; pleasant affect; non-toxic appearing; well-nourished; cooperative; SpO2 91% on RA HEENT: normocephalic, atraumatic; no scleral icterus; PERRLA; moist mucus membrane; vision and hearing grossly intact Neck: supple; trachea midline Skin: Diaphoretic; erythematous; warm without signs of tenting; no cyanosis; no rashes, bruising, or lesions noted CV: chest wall NTP; RRR; S1/S2 normal; no murmurs/rubs/gallops; pulses intact and symmetric at radial, DP, and PT Lungs: no acute respiratory distress; symmetrical chest wall expansion; bibasilar crackles auscultated in the lower lung christian bilaterally; mild expiratory wheezing ABD: Soft, NTP; BS present; no rebound/guarding; no distention MSK: no tics or fasciculations; no edema noted in the LEs b/l, nonerythematous Neuro: A&Ox3; normal mood and affect; fluent speech; no focal deficits; sensation grossly intact in the LEs b/l Results & Data Results & Data Vital Signs (Past 12 Hours) Vital Signs Temp Pulse Resp BP Pulse Ox O2 Del Method 12/27/23 10:16 91 Room Air 12/27/23 10:09 90 25 H 12/27/23 09:30 89 30 H 90 12/27/23 09:30 123/83 12/27/23 09:13 90 Room Air 12/27/23 09:06 106 H 22 12/27/23 09:04 98 H 12/27/23 08:39 36.7 C 105 H 20 133/75 94 Room Air Laboratory Results Abnormal lab results 12/27/23 Range/Units 09:00 WBC 13.30 H (4.8-10.8) K/ul Neut # (Auto) 9.79 H (1.40-6.50) K/uL Lea # (Auto) 0.71 H (0.11-0.59) K/uL Sodium 135 L (136-145) mmol/L Glucose 174 H (70-99(Fasting)) mg/dl Diagnostic Findings Abdomen/Pelvis CT 12/27/23 08:[address] WITH IV CONTRAST HISTORY: Acute onset abdominal pain dyspnea, cough, emesis TECHNIQUE: Multiaxial CT images of the abdomen and pelvis were performed following the IV administration of 119 cc of Optiray, A dose lowering technique was utilized adhering to the principles of ALARA. COMPARISON STUDY: 11/04/2022 FINDINGS: Coronary artery calcifications. Diffuse tree-in-bud nodules with bibasilar groundglass densities. Associated bronchial wall thickening with mild mucous plugging. No free air. Spleen is upper limits of normal in size. Hepatomegaly with hepatic steatosis. Unremarkable pancreas, gallbladder and adrenal glands. Patency of the hepatic and portal veins. Mild nonspecific bilateral perinephric stranding. No hydronephrosis. Urinary bladder wall thickening with partial distention. No abdominal aortic aneurysm or lymphadenopathy. No bowel obstruction or bowel wall thickening. Colonic diverticulosis. No CT evidence of acute appendicitis. Unremarkable soft tissues. Chronic pars defects at L5 with unchanged L5-S1 anterolisthesis. No acute fracture. IMPRESSION: 1. Bronchitis with infectious or inflammatory bronchiolitis. 2. No bowel obstruction or bowel wall thickening. 3. Hepatomegaly with hepatic steatosis. ACT 112: Negative or not required by law. The above report was generated using voice recognition software. It may contain grammatical, syntax or spelling errors. Electronically signed by: Gordo Thorne M.D. 12/27/2023 10:48 AM Chest CTA 12/27/23 08:50 CT angio chest PE protocol CLINICAL HISTORY: dyspnea, cough, emesis TECHNIQUE: Multidetector row helical CT of the chest was performed with angiographic protocol. Coronal and sagittal reformations were obtained. Coronal and sagittal MIPS were obtained from the axial data set and were submitted for review. Automated dose lowering techniques and/or adjustment according to patient size were utilized for this exam. CT DOSE: 2510.88 mGy.cm Comparison: Comparison is made to chest radiograph 12/08/2023 FINDINGS: Lungs and pleura: Tree-in-bud nodularity and groundglass opacities are seen most prominently in the bilateral lower lobes but present throughout. Heart and pericardium: Heart size is normal. No pericardial effusion. Vessels: No evidence of pulmonary embolism. Mediastinum and jose f: Subcentimeter lymph nodes are seen. Chest wall and lower neck: Unremarkable. Abdomen: Unremarkable. Bones: Minimal degenerative changes are seen. IMPRESSION: 1. No pulmonary embolus. 2. Findings compatible with multifocal pneumonia with reactive lymphadenopathy. ACT 112: Negative or not required by law. Electronically signed by: George Ge M.D. 12/27/2023 10:16 AM ECG Additional Comments: ECG revealed NSR at 88 bpm; QTc 411 Code Status & VTE Plan Code Status Full code VTE Prophylaxis Plan VTE Prophylaxis will be ordered: Yes Supervising Physician Co-Signing Physician Notes I have personally seen, evaluated and examined the patient. I have also personally discussed the management of the patient with the resident physician/MELBA and I agree with the exam findings documented in the history and physical examination and the documented assessment and plan unless otherwise stated below. Brief Exam: In general pleasant 38-year-old male who is alert and x 3 at the time of my exam. Shortness of breath and coughing noted at the bedside. Patient has not retracted and he is not in any respiratory extremis but does have some shortness of breath with conversation. He interacts appropriately. HEENT: Normocephalic atraumatic. Heart: Regular rate rhythm no murmur or ectopy or rub. Lungs: Coarse bilaterally with bilateral rhonchi. Abdomen: Soft nontender positive bowel sounds no appreciable organomegaly. Extremities: Intact no clubbing cyanosis or edema. Neurologically: Alert and oriented x 3 with no focal deficit. Assessment/plan: As discussed above. Please refer to orders for further planning. The patient's bio fire panel was pending at the time of this dictation. We will follow-up on that and treat accordingly if positive. PG Care Time/CCT Total # of Minutes Spent Total Time Spent with Patient: Total time spent is greater than 50% in coordination of care (as documented) at patient's floor/unit and/or counseling patient: Coding [place] [address] INT INP/OBS CARE MIN Patient Type Established Medical Decision Making High Complexity Diagnoses Multifocal pneumonia J18.9 Uncontrolled type 2 diabetes mellitus with hyperglycemia E11.65 Glycemic state: with hyperglycemia Moderate obstructive sleep apnea G47.33 Hyperlipemia E78.5 Acquired hypothyroidism E03.9 Hypothyroidism type: acquired (2) Diabetes type 2, uncontrolled Glycemic state: with hyperglycemia Qualified Code(s): E11.65 - Type 2 diabetes mellitus with hyperglycemia (5) Hypothyroidism Hypothyroidism type: acquired Qualified Code(s): E03.9 - Hypothyroidism, unspecified
[2023-12-27] MEDS: PIPERACILLIN/TAZOBACTAM 4.5 GM/100 ML BAG IV ONE (11:26)
[2023-12-27] MEDS ORDERED: GLUCOSE 10 TAB/TUBE PO PRN (11:37)
[2023-12-27] MEDS ORDERED: GLUCAGON FOR INJ 1 MG VIAL SQ PRN (11:37)
[2023-12-27] MEDS ORDERED: GLUCOSE 40% GEL 15 GM TUBE PO PRN (11:37)
[2023-12-27] MEDS ORDERED: DEXTROSE 50% 50 ML SYRINGE IV PRN (11:37)
[2023-12-27] MEDS ORDERED: CARBOHYDRATES FOR HYPOGLYCEMIA PO PRN (11:37)
[2023-12-27 12:43] LABS: Adenovirus PCR Not Detected (NotDetected); Bordetella parapertussis PCR Not Detected (NotDetected); Bordetella pertussis PCR Not Detected (NotDetected); Chlamydia pneumoniae PCR Not Detected (NotDetected); Coronavirus 229E PCR Not Detected (NotDetected); Coronavirus CoV-2 (COVID19)PCR Not Detected (NotDetected); Coronavirus HKU1 PCR Not Detected (NotDetected); Coronavirus NL63 PCR Not Detected (NotDetected); Coronavirus OC43PCR Not Detected (NotDetected); Human Metapneumovirus PCR Not Detected (NotDetected); Influenza A PCR Not Detected (NotDetected); Influenza B PCR Not Detected (NotDetected); Mycoplasma pneumoniae PCR DETECTED (NotDetected); Parainfluenza Virus 1 PCR Not Detected (NotDetected); Parainfluenza Virus 2 PCR Not Detected (NotDetected); Parainfluenza Virus 3 PCR Not Detected (NotDetected); Parainfluenza Virus 4 PCR Not Detected (NotDetected); Respiratory Syncytial VirusPCR Not Detected (NotDetected); Rhinovirus/Enterovirus PCR DETECTED (NotDetected)
[2023-12-27] MEDS: guaiFENesin 600 MG TABCR PO ONE (12:45)
[2023-12-27] MEDS ORDERED: ACETAMINOPHEN 325 MG TAB PO PRN (15:05)
[2023-12-27] MEDS ORDERED: ONDANSETRON INJ 2 MG/ML 2 ML VIAL IV PRN (15:05)
[2023-12-27] MEDS: DOXYCYCLINE HYCLATE 100 MG in DEXTROSE 5% MINI-B 100 ML IV SCH (15:29)
[2023-12-27 15:39] LABS: Appearance Urine Clear (Clear); Bilirubin Urine Negative (Negative); Blood Urine Negative (Negative); Color Urine Yellow; Glucose Urine UA Negative (Negative); Ketones Urine Negative (Negative); Leukocyte Esterase Urine Negative (Negative); Nitrite Urine Negative (Negative); Protein Urine Negative (Negative); Urobilinogen Urine Negative (Negative)
[2023-12-27] MEDS ORDERED: Nursing to Pharmacy Communication SCH ×2 (16:00→23:15)
--- NOTE | 2023-12-27 17:14 | Electrocardiogram Report ---
Test Reason : Blood Pressure : / mmHG Vent. Rate : 088 BPM Atrial Rate : 088 BPM P-R Int : 174 ms QRS Dur : 096 ms QT Int : 340 ms P-R-T Axes : 021 018 032 degrees QTc Int : 411 ms Normal sinus rhythm Normal ECG When compared with ECG of 08-DEC-2023 14:19, No significant change was found Confirmed by Nagi Woods ([id number]) on 12/27/2023 5:14:15 PM Referred By: Poppy Das Confirmed By:Nagi Woods
[2023-12-27] MEDS: PIPERACILLIN/TAZOBACTAM 4.5 GM in DEXTROSE 5% MINI-B 100 ML IV SCH (17:27)
[2023-12-27] MEDS: INSULIN ASPART PER UNIT CHARGE SC SCH (18:59)
[2023-12-27] MEDS: ENOXAPARIN INJ 40 MG/0.4 ML SYR SQ SCH (20:48)
[2023-12-27] MEDS: guaiFENesin 600 MG TABCR PO SCH (20:49)
[2023-12-27] MEDS: ROSUVASTATIN CALCIUM 10 MG TAB PO SCH (20:50)
[2023-12-27] MEDS: lisinopril 10 MG TAB PO SCH (20:50)
[2023-12-27] MEDS: ASPIRIN 81 MG ECTAB PO SCH (20:50)
[2023-12-27] MEDS: LANTUS PER UNIT CHARGE SQ SCH (21:27)
[2023-12-28 07:56] LABS: Basophils # (auto) 0.05 K/uL (0.00-0.20); Basophils % (auto) 0.4 %; Eosinophils # (auto) 0.32 K/uL (0.00-0.50); Eosinophils % (auto) 2.6 %; Hematocrit (blood only) 46.7 % (42.0-52.0); Hemoglobin 15.5 g/dl (14.0-18.0); Immature Granulocytes # (auto) 0.08 K/uL (0.01-0.20); Immature Granulocytes % (auto) 0.6 %; Lymphocytes # (auto) 2.67 K/uL (1.20-3.40); Lymphocytes % (auto) 21.7 %; Mean Corpuscular Hemoglobin 29.8 pg (25.0-34.0); Mean Corpuscular Hgb Conc 33.2 g/dL (32.0-36.0); Mean Corpuscular Volume 89.8 fL (80.0-100.0); Mean Platelet Volume 12.1 fL (9.4-12.4); Monocytes # (auto) 0.82 K/uL (0.11-0.59); Monocytes % (auto) 6.7 %; Neutrophils # (auto) 8.39 K/uL (1.40-6.50); Platelet Count 211 K/uL (130-400); RDW Coefficient of Variation 13.1 % (11.5-14.5); RDW Standard Deviation 42.9 fL (36.4-46.3); White Blood Count 12.33 K/ul (4.8-10.8)
[2023-12-28 08:11] LABS: BUN Creatinine Ratio 14.1 (10-20); Calcium 9.6 mg/dl (8.6-10.3); Creatinine Clr Calc Pharmacy 137.4 ml/min; Est GFR (African American) 130.9 ml/min; Est GFR (Non-African American) 112.9 ml/min; Potassium 4.1 mmol/L (3.5-5.1)
[2023-12-28] MEDS: AZITHROMYCIN 500 MG in DEXTROSE 5% 250 ML IV ONE (08:30)
[2023-12-28] MEDS: cefTRIAXone SODIUM 2,000 MG/50 ML BAG IV SCH (08:36)
[2023-12-28] MEDS: LEVOTHYROXINE SODIUM 150 MCG TABLET PO SCH (08:44)
[2023-12-28 08:50] LABS: Estimated Average Glucose 203 mg/dl; Hemoglobin A1C 8.7 % (4.5-5.6)
--- NOTE | 2023-12-28 20:04 | Hospitalist Progress Note ---
Date of Service December 28, 2023 Assessment & Plan (1) Multifocal pneumonia: Plan: Probably bacterial overgrowth superimposed on viral, but with mycoplasma and it being a patchy bilateral, it could truly simply be an atypical pneumonia. Either way sick enough to be in the hospital, septic present on admission, he has an oxygen requirementbut fortunately does not appear to have severe sepsis/septic shockTherefore no clear role for MRSA or pseudomonal coveragestreamline antibiotics to Zithromax/Rocephin (2) Diabetes type 2, uncontrolled: Plan: Last A1c at 7.5% on 06/24/2023 sugars overall good control right now. Continue current plan. (3) Moderate obstructive sleep apnea: Plan: CPAP HS I do wonder if this is amplifying his oxygen requirement somewill need to continue to follow (4) Hyperlipemia: Plan: Continue rosuvastatin (5) Hypothyroidism: Plan: Continue levothyroxine Plan DVT prophylaxis with Lovenox safe/stable on [facility] home once off oxygen Admission and Anticipated Discharge Date Admission Date: December 27, 2023 Subjective Feeling a bit better than yesterday. Still coughing. Still on oxygen. Discusses that his son was sick very similarly last week. Review of Systems Review of Systems: All systems reviewed & are unremarkable except as noted in HPI & below Physical Exam Physical Exam: In general he is awake and alert pleasant no distress. HEENT normocephalic atraumatic mucous membranes moist. Lungs show faint rales, no rhonchi no wheezes good effort no accessory muscle use. Still on 2 L nasal cannula, neuro without focal deficits. Skin without rashes pallor or icterus. Results & Data Results & Data Vital Signs (Past 12 Hours) Vital Signs Temp Pulse Pulse Resp BP Pulse Ox O2 Del Method 12/28/23 19:55 98.2 F 94 H 18 126/85 91 Nasal Cannula 12/28/23 15:15 98.2 F 94 H 16 132/89 91 Nasal Cannula 12/28/23 15:07 96 H 12/28/23 11:06 97.9 F 95 H 16 133/93 91 Nasal Cannula 12/28/23 11:02 111 H O2 Flow Rate 12/28/23 19:55 2 12/28/23 15:15 2 12/28/23 15:07 12/28/23 11:06 2 12/28/23 11:02 PG Care Time/CCT Total # of Minutes Spent Total Time Spent with Patient: Total time spent is greater than 50% in coordination of care (as documented) at patient's floor/unit and/or counseling patient: Coding Level of Care Code 49164 SUB INP/OBS CARE 3/50MIN Diagnoses Multifocal pneumonia J18.9 Uncontrolled type 2 diabetes mellitus with hyperglycemia E11.65 Glycemic state: with hyperglycemia Moderate obstructive sleep apnea G47.33 Hyperlipemia E78.5 Acquired hypothyroidism E03.9 Hypothyroidism type: acquired (2) Diabetes type 2, uncontrolled Glycemic state: with hyperglycemia Qualified Code(s): E11.65 - Type 2 diabetes mellitus with hyperglycemia (5) Hypothyroidism Hypothyroidism type: acquired Qualified Code(s): E03.9 - Hypothyroidism, unspecified
[2023-12-29 06:41] LABS: Basophils # (auto) 0.08 K/uL (0.00-0.20); Basophils % (auto) 0.7 %; Eosinophils # (auto) 0.41 K/uL (0.00-0.50); Eosinophils % (auto) 3.7 %; Hematocrit (blood only) 46.4 % (42.0-52.0); Hemoglobin 15.7 g/dl (14.0-18.0); Immature Granulocytes # (auto) 0.15 K/uL (0.01-0.20); Immature Granulocytes % (auto) 1.3 %; Lymphocytes # (auto) 3.51 K/uL (1.20-3.40); Lymphocytes % (auto) 31.3 %; Mean Corpuscular Hemoglobin 29.9 pg (25.0-34.0); Mean Corpuscular Hgb Conc 33.8 g/dL (32.0-36.0); Mean Corpuscular Volume 88.4 fL (80.0-100.0); Mean Platelet Volume 12.4 fL (9.4-12.4); Monocytes # (auto) 0.78 K/uL (0.11-0.59); Neutrophils # (auto) 6.29 K/uL (1.40-6.50); Platelet Count 209 K/uL (130-400); RDW Standard Deviation 41.9 fL (36.4-46.3); Red Blood Count 5.25 M/uL (4.70-6.10); White Blood Count 11.22 K/ul (4.8-10.8)
[2023-12-29 06:47] LABS: BUN Creatinine Ratio 17.6 (10-20); Calcium 9.9 mg/dl (8.6-10.3); Creatinine Clr Calc Pharmacy 144.1 ml/min; Est GFR (African American) 133.7 ml/min; Est GFR (Non-African American) 115.4 ml/min; Potassium 4.1 mmol/L (3.5-5.1)
--- NOTE | 2023-12-29 07:05 | Hospitalist Progress Note ---
Date of Service December 29, 2023 Assessment & Plan Plan 1) Multifocal pneumonia: Worsening SOB, cough, fever x 1 week, with vomiting the morning of 12/26 No CXR done; Chest CTA consistent with multifocal pneumonia and reactive lymphadenopathy Leukocytosis, 13.30 (w/ neutrophil predominance), afebrile BioFire panel: Mycoplasma pneumoniae+, Entero/rhino+ Procalcitonin, 0.04; MRSA nares, negative Zosyn 4.5 g IV q8h to cover for possible aspiration PNA Blood Cx, no growth after 24 hrs Guaifenesin 1200 mg p.o. BID for cough; Acetaminophen as needed for fever/pain Incentive spirometry, flutter valve Supplemental oxygen as needed to maintain SpO2 >94% Continuous pulse oximetry AM labs: CBC, BMP, mag (2) Diabetes type 2, uncontrolled: A1C, 8.7 --> previous last A1c at 7.5% on 06/24/2023 Hold metformin, Ozempic, Januvia Patient is normally on insulin glargine 30u HS Lantus 15u BID while inpatient SSI; with target BSG range 110-140mg/dL, CF 25, carb ratio 10 T2DM diet; BSG ACHS Adjust regimen as needed (3) Moderate obstructive sleep apnea: CPAP HS (4) Hyperlipemia: Continue rosuvastatin (5) Hypothyroidism: Continue levothyroxine Plan Disposition: Obs - Admit to [facility] telemetry Code status: Full code FENGI: T2DM diet VTE PX: Lovenox 40 mg SQ q24h Admission and Anticipated Discharge Date Admission Date: December 28, 2023 Subjective Feeling a bit better than yesterday. Still coughing. Still on oxygen. Discusses that his son was sick very similarly last week. Review of Systems Constitutional: no fever, no chills, no fatigue and no weakness Respiratory: + cough, + chest congestion and + sputum production; no dyspnea and no dyspnea on exertion Cardiovascular: no chest pain and no palpitations Gastrointestinal: + diarrhea/loose stools (w/ Abx); no abd ominal pain, no nausea, no vomiting and no constipation Genitourinary: no dysuria or no urinary frequency Integumentary: no rash Neurologic: no tingling, no numbness and no headache(s) Results & Data Results & Data Vital Signs (Past 12 Hours) Vital Signs Temp Pulse Pulse Resp BP Pulse Ox O2 Del Method 12/29/23 04:10 36.7 C 84 18 102/63 92 Room Air 12/28/23 23:56 36.6 C 85 18 129/82 92 Room Air 12/28/23 22:35 Nasal Cannula 12/28/23 21:58 92 H 12/28/23 19:55 36.8 C 94 H 18 126/85 91 Nasal Cannula O2 Flow Rate 12/29/23 04:10 12/28/23 23:56 12/28/23 22:35 2 12/28/23 21:58 12/28/23 19:55 2
--- NOTE | 2023-12-29 08:09 | Hospitalist Progress Note ---
Date of Service December 29, 2023 Assessment & Plan (1) Multifocal pneumonia: Plan: Multifocal pneumonia, mycoplasma pneumoniae, rhinovirus -Worsening SOB, cough, fever x 1 week, with vomiting the morning of 12/26. SOB and cough improving. -Pulse ox continues to be in the low 90s on 2 liters nasal cannula. -On admission, afebrile, Leukocytosis, 13.30 (w/ neutrophil predominance), trending downward. -BioFire panel: Mycoplasma pneumoniae+, Entero/rhino+. Blood Cx, no growth after 24 hrs. Procalcitonin, 0.04; MRSA nares, negative -No CXR done; Chest CTA consistent with multifocal pneumonia and reactive lymphadenopathy -s/p azithromycin -Consults: * Continuous pulse oximetry. Supplemental oxygen as needed to maintain SpO2 >94% * Incentive spirometry, flutter valve * Continue Azithromycin IV and Ceftriaxone * Guaifenesin 1200 mg p.o. BID for cough. Acetaminophen as needed for fevxszaer/pain Diabetes type 2, with increase in A1C: -Prior A1C FROM 06/2023 WAS 7.5%. On admission, A1C 8.7% -Patient is normally on insulin glargine 30u HS * Hold metformin, Ozempic, Januvia (sitagliptin) * Lantus 15u BID while inpatient * SSI; with target BSG range 110-140mg/dL, CF 25, carb ratio 10. Adjust regimen as needed * Follow up outpatient with PCP Moderate obstructive sleep apnea: * CPAP HS Hyperlipemia: * Continue rosuvastatin Hypothyroidism: * Continue levothyroxine Plan FEN: T2DM diet Code status: full code DVT ppx: Lovenox 40 mg SQ q24h Held home meds: Isolation: Droplet Case management: Dispo: med/surg (2) Diabetes type 2, uncontrolled: (3) Moderate obstructive sleep apnea: (4) Hyperlipemia: (5) Hypothyroidism: Admission and Anticipated Discharge Date Admission Date: December 28, 2023 Subjective No overnight events. Slept well. Feeling better, but still coughing. Otherwise, feels ready to be discharged. Pain control: Patient not currently in pain. Bowel/bladder concerns: Patient is able to urinate without concern. Their last BM was yesterday morning. Nutritional Status: Has been able to eat and drink without concern. Mobility: Has been able to ambulate without assistance or issue. Review of Systems 2 Review of Systems: See HPI, otherwise negative Physical Exam 2 Physical Exam: Constitutional: well-appearing, no acute distress. On 2L nasal cannula. HEENT: NCAT, no conjunctival injection, no scleral icterus CV: regular rate and rhythm, no murmur appreciated, extremities well-perfused, no LE edema Resp: + rales, no wheezes/rhonchi appreciated,no increased work of breathing GI: soft, nondistended, nontender, BS normoactive MSK: no gross deformities appreciated Skin: warm, dry, no rash appreciated Neuro: alert, oriented, no focal neurologic deficits appreciated Results & Data Results & Data Vital Signs (Past 12 Hours) Vital Signs Temp Pulse Pulse Resp BP Pulse Ox O2 Del Method 12/29/23 07:33 97.9 F 79 15 125/83 91 Nasal Cannula 12/29/23 07:00 66 12/29/23 04:10 98.1 F 84 18 102/63 92 Room Air 12/28/23 23:56 97.9 F 85 18 129/82 92 Room Air 12/28/23 22:35 Nasal Cannula 12/28/23 21:58 92 H O2 Flow Rate 12/29/23 07:33 2 12/29/23 07:00 12/29/23 04:10 12/28/23 23:56 12/28/23 22:35 2 12/28/23 21:58 Laboratory Results 12/29/23 05:19 12/29/23 05:19 Medications Administered Current Medications Acetaminophen (Acetaminophen 325 Mg Tab) 650 mg PO Q4H PRN PRN Reason: Pain or Fever Stop: 01/26/24 15:04 Aspirin (Aspirin 81 Mg Ectab) 81 mg PO QPM FAUSTO Stop: 01/26/24 20:59 Last Admin: 12/28/23 20:14 Dose: 81 mg Dextrose (Dextrose 50% 50 Ml Syringe) 25 - 50 ml IV UD PRN; Protocol PRN Reason: Hypoglycemia Protocol Stop: 01/26/24 11:36 Enoxaparin Sodium (Enoxaparin Inj 40 Mg/0.4 Ml Syr) 40 mg SQ Q24H FAUSTO Stop: 01/26/24 20:59 Last Admin: 12/28/23 20:14 Dose: 40 mg Glucagon (Glucagon For Inj 1 Mg Vial) 1 mg SQ UD PRN; Protocol PRN Reason: Hypoglycemia Protocol Stop: 01/26/24 11:36 Glucose (Glucose 40% Gel 15 Gm Tube) 15 - 30 gm PO UD PRN; Protocol PRN Reason: Hypoglycemia Protocol Stop: 01/26/24 11:36 Glucose (Glucose 10 Tab/Tube) 4 - 8 tab PO UD PRN; Protocol PRN Reason: Hypoglycemia Treatment Stop: 01/26/24 11:36 Guaifenesin (Guaifenesin 600 Mg Tabcr) 1,200 mg PO Q12 FAUSTO Stop: 01/26/24 20:59 Last Admin: 12/29/23 08:49 Dose: 1,200 mg Ceftriaxone Sodium (Rocephin) 2,000 mg in 50 mls @ 100 mls/hr IV Q24H FAUSTO Stop: 01/04/24 08:59 Last Admin: 12/29/23 08:53 Dose: 100 mls/hr Azithromycin 250 mg/ Dextrose 252.5 mls @ 125 mls/hr IV Q24H FAUSTO Stop: 01/05/24 08:59 Last Admin: 12/29/23 08:49 Dose: 125 mls/hr Insulin Aspart (Insulin Aspart Per Unit Charge) 0 units SC ACHS FAUSTO Stop: 01/26/24 16:29 Last Admin: 12/29/23 09:00 Dose: 5 units Insulin Glargine (Lantus Per Unit Charge) 15 units SQ BID FAUSTO Stop: 01/26/24 20:59 Last Admin: 12/29/23 09:00 Dose: 15 units Levothyroxine Sodium (Levothyroxine Sodium 150 Mcg Tablet) 150 mcg PO DAILY FAUSTO Stop: 01/27/24 08:59 Last Admin: 12/29/23 08:50 Dose: 150 mcg Lisinopril (Lisinopril 10 Mg Tab) 10 mg PO HS FAUSTO Stop: 01/26/24 20:59 Last Admin: 12/28/23 20:14 Dose: 10 mg Miscellaneous (Carbohydrates For Hypoglycemia ) 15 - 30 gm PO UD PRN PRN Reason: Hypoglycemia Protocol Stop: 01/26/24 11:36 Ondansetron HCl (Ondansetron Inj 2 Mg/Ml 2 Ml Vial) 4 mg IV Q6H PRN PRN Reason: Nausea Stop: 01/26/24 15:04 Rosuvastatin Calcium (Rosuvastatin Calcium 10 Mg Tab) 10 mg PO QPM FAUSTO Stop: 01/26/24 20:59 Last Admin: 12/28/23 20:14 Dose: 10 mg (2) Diabetes type 2, uncontrolled Glycemic state: with hyperglycemia Qualified Code(s): E11.65 - Type 2 diabetes mellitus with hyperglycemia (5) Hypothyroidism Hypothyroidism type: acquired Qualified Code(s): E03.9 - Hypothyroidism, unspecified
[2023-12-29] MEDS: AZITHROMYCIN 250 MG in DEXTROSE 5% 250 ML IV SCH (08:49)
[2023-12-29] MEDS: COUGH DROP (SUGAR FREE) LOZ 24 LOZ/1 BOX BUCCAL PRN (11:56)
--- NOTE | 2023-12-29 13:51 | Discharge Summary ---
Date of Service December 29, 2023 Admission HPI Per Admitting Provider Mayuri is a 38-year-old male with PMH of T2DM, hypothyroidism, HTN, hyperlipidemia, moderate WILD, small bowel obstruction, and ileus. He presented for worsening SOB and fever x 6 days, with acute onset of dizziness and vomiting the morning of 12/26. Patient reports that he has had a cough since last Wednesday 12/20. His son (17-year-old) was recently sick on the previous 12/15 with a 103 F fever, and was placed on antibiotics for pneumonia. Patient has been exhibiting a dry cough, chest congestion, and then developed fever and chills over the weekend. He reports that he woke up soaked in sweat the morning of 12/26, and thought perhaps he broke his fever, but then started vomiting outside while walking to his car. He felt dizzy after throwing up and had to lean against his truck. He does not believe he aspirated when vomiting, but is unsure. He endorses SOB both at rest and with exertion; worse when he lies flat on his back. No supplemental oxygen at home, but patient does use a CPAP at night and reports good consistency. Patient tried taking an inhaler at home, but this did not help. He is also been rotating Advil cold/sinus, ibuprofen, and DayQuil with minimal benefit. He has had some relief from cough syrup (Mucinex and Benadryl) which she takes at night. No history of DVT/PE, COPD, ID, stroke, or CHF. Patient is a current everyday tobacco cigarette smoker; 12 PPD; declines nicotine patch while inpatient. He denies alcohol use. Patient took all of his regular morning medications, except for metformin. No recent change in medications. He was previously on glimepiride for T2DM, but stopped taking it a year ago when he was placed on Ozempic. Patient's SpO2 was 91% on RA at time of admission; vitals otherwise stable. ED course: Zosyn 4.5 g IV ROS: Patient endorses fever, chills, night-sweats, lightheadedness/dizziness with movements, rib pain (from coughing), SOB at rest and [place], orthopnea, productive cough, pleuritic CP, Patient denies fainting, chest pain, chest palpitations, hemoptysis, abdominal pain, hematemesis, leg swelling, Admission Exam Per Admitting Provider General: Dry cough and mild respiratory distress; pleasant affect; non-toxic appearing; well-nourished; cooperative; SpO2 91% on RA HEENT: normocephalic, atraumatic; no scleral icterus; PERRLA; moist mucus membrane; vision and hearing grossly intact Neck: supple; trachea midline Skin: Diaphoretic; erythematous; warm without signs of tenting; no cyanosis; no rashes, bruising, or lesions noted CV: chest wall NTP; RRR; S1/S2 normal; no murmurs/rubs/gallops; pulses intact and symmetric at radial, DP, and PT Lungs: no acute respiratory distress; symmetrical chest wall expansion; bibasilar crackles auscultated in the lower lung christian bilaterally; mild expiratory wheezing ABD: Soft, NTP; BS present; no rebound/guarding; no distention MSK: no tics or fasciculations; no edema noted in the LEs b/l, nonerythematous Neuro: A&Ox3; normal mood and affect; fluent speech; no focal deficits; sensation grossly intact in the LEs b/l Principal Diagnosis Multifocal pneumonia, mycoplasma pneumoniae, rhinovirus Discharge Exam Constitutional: well-appearing, no acute distress. On 2L nasal cannula. HEENT: NCAT, no conjunctival injection, no scleral icterus CV: regular rate and rhythm, no murmur appreciated, extremities well-perfused, no LE edema Resp: + rales, no wheezes/rhonchi appreciated,no increased work of breathing GI: soft, nondistended, nontender, BS normoactive MSK: no gross deformities appreciated Skin: warm, dry, no rash appreciated Neuro: alert, oriented, no focal neurologic deficits appreciated Respiratory normal respiratory effort and + cough Auscultation: breath sounds present, no crackles and no wheezes Cardiovascular RRR, no murmur, no edema Extremities: normal capillary refill; no calf tenderness and no pedal edema Gastrointestinal (Abdomen) normal bowel sounds, soft, nontender, no hepatosplenomegaly Psychiatric A+Ox3, euthymic affect Discharge Data Allergies Allergy/AdvReac Type Severity Reaction Status Date / Time No Known Allergies Allergy Verified 06/28/23 15:33 Consultations 12/27/23 10:42 ED Decision to Admit Stat Ordered Studies 12/27/23 08:50 CT abd pelvis IV con only Stat: 1. Bronchitis with infectious or inflammatory bronchiolitis. 2. No bowel obstruction or bowel wall thickening. 3. Hepatomegaly with hepatic steatosis. CT angio chest PE protocol Stat 1. No pulmonary embolus. 2. Findings compatible with multifocal pneumonia with reactive lymphadenopathy. Hospital Course (1) Multifocal pneumonia: 1) Multifocal pneumonia, mycoplasma pneumoniae, rhinovirus -Worsening SOB, cough, fever x 1 week, with vomiting the morning of 12/26. SOB and cough improving. -Pulse ox continues to be in the low 90s on 2 liters nasal cannula. -On admission, afebrile, Leukocytosis, 13.30 (w/ neutrophil predominance), trending downward. -BioFire panel: Mycoplasma pneumoniae+, Entero/rhino+. Blood Cx, no growth after 24 hrs. Procalcitonin, 0.04; MRSA nares, negative -No CXR done; Chest CTA consistent with multifocal pneumonia and reactive lymphadenopathy -s/p azithromycin, ceftriaxone * Supplemental oxygen provided to maintain SpO2 >94% * Incentive spirometry, flutter valve * Guaifenesin 1200 mg p.o. BID for cough. Acetaminophen as needed for fever/pain * Discharged with azithromycin, 250 mg/one tablet, daily, for 3 more days and cefdinir, 300 mg/one tablet, twice a day, for 5 more days. Diabetes type 2, with increase in A1C: -Prior A1C from 06/2023 was 7.5%. On admission, A1C 8.7% -Patient is normally on insulin glargine 30u HS * Held metformin, Ozempic, Januvia (sitagliptin) while in the hospital. * Received Lantus 15u BID while inpatient. SSI; with target BSG range 110- 140mg/dL, CF 25, carb ratio 10. Adjust regimen as needed. * Follow up outpatient with PCP to discuss further management Moderate obstructive sleep apnea: * CPAP HS Hyperlipemia: * Continue rosuvastatin Hypothyroidism: * Continue levothyroxine (2) Diabetes type 2, uncontrolled: (3) Moderate obstructive sleep apnea: (4) Hyperlipemia: (5) Hypothyroidism: Total Time Total Time Spent Total Time Spent (In Minutes): <30 Discharge Plan Discharge Items Patient Disposition: Home - Self-Care Reason For Visit: SOB/DYSPNEA, VOMITING, FEVER Discharge Diagnosis: Pneumonia Condition on Discharge: Good Activity: Resume your previous activity Non-emergency contact: Primary Care Provider Call non-emergency contact if: you have any medication questions, your symptoms worsen and your temperature is above 101.5 Follow-up/Referrals: Poppy Das CRNP [Primary Care Provider] - 01/10/24 2:00 pm Diet: Carb Consistent or DM2 Addtl Attending Provider Instructions: You were admitted to the hospital for shortness of breath and six days of fever. You were treated with IV fluids, ceftriaxone, azithromycin, and Mucinex. A discharge summary will be sent to your primary care physician to ensure continuity of care. Please bring this discharge summary with you to your next office appointment so that your provider can review it at that time. Follow-up appointments: We have requested a follow-up appointment with your primary care physician within one week of discharge. Please call their office if you do not hear from them. Keep all your follow-up appointments as already scheduled. If you cannot make an appointment, notify your provider. Medications: Your medication list has been reviewed and reconciled upon discharge to ensure accuracy and continuity of care. An updated list of all your medications is included with your hospital discharge paperwork. Please review this list closely, and make note of any changes. We sent a new medication called azithromycin to your pharmacy. Take azithromycin, 250 mg/one tablet, daily, for 3 more days. We sent a new medication called cefdinir to your pharmacy. Take cefdinir, 300 mg/one tablet, twice a day, for 5 more days. Take your medications as instructed; do not skip a dose of your medicines. Make sure all of your doctors know every medicine you are taking (including oinw-ebk-qynoanl medicines, vitamins, and supplements). Call your primary care p taylor before taking any new medicines (including ydca-kiu-idpqvbo medicines, vitamins, and supplements), because some of these may interact with your current medications, or may make your symptoms worse. Tell your primary care provider if you cannot afford your medications. CONTACT YOUR PRIMARY CARE PROVIDER if you experience any of the following: fatigue, weakness, chills recurrent fevers, continued shortness of breath Difficulty following your treatment plan, or difficulty taking medications CALL 911 OR GO TO THE EMERGENCY DEPARTMENT if you experience any of the following: Sudden, severe abdominal pain or nausea/vomiting Severe chest pain, or chest pain that radiates (moves) to your jaw or arm Sudden, severe shortness of breath or difficulty breathing Thank you for allowing us to participate in your care. Pending Studies at Discharge: No Stand-Alone Forms: [facility], Smoking Cessation Medications and DC Order Prescriptions: New azithromycin 250 mg tablet 250 mg PO DAILY 3 Days Qty: 3 0RF Rx Instructions: start on day 2 of therapy cefdinir 300 mg capsule 300 mg PO BID 5 Days Qty: 10 0RF Continued (DME) lancets [OneTouch Delica Plus Lancet] 33 gauge misc See Dose Instructions .ROUTE .MEDSUPPLY Qty: 100 5RF Rx Instructions: As directed (DME) OneTouch Verio test strips Strip See Dose Instructions .ROUTE .MEDSUPPLY Qty: 100 5RF Rx Instructions: check blood sugar before meals lisinopril 10 mg tablet 10 mg PO HS Qty: 90 3RF Jardiance 10 mg tablet 10 mg PO DAILY Qty: 90 3RF (DME) FreeStyle Anna 2 Sensor Kit See Rx Instructions .Route Qty: 2 5RF Rx Instructions: As directed to check blood sugars at least once every 8 hours; replace every 14 days metformin 500 mg tablet extended release 24 hr 500 mg PO BID Qty: 60 5RF (DME) pen needle, diabetic 32 gauge x 1/6" needle See Rx Instructions .Route Qty: 100 5RF Rx Instructions: Inject once or twice daily as instructed Dx: Type II Diabetes semaglutide 1 mg/dose (4 mg/3 mL) pen injector 1 mg subcut .COMPLEX Qty: 3 11RF Rx Instructions: 1 mg subcutaneously once weekly; insulin glargine [Lantus Solostar U-100 Insulin] 100 unit/mL (3 mL) insulin pen 30 unit subcut HS Qty: 15 11RF levothyroxine 150 mcg tablet 150 mcg PO DAILY Qty: 90 3RF sildenafil 25 mg tablet 25 mg PO DAILY PRN (Reason: sexual activity) Qty: 30 5RF Rx Instructions: administer 30 minutes to 4 hours before activity rosuvastatin 10 mg tablet 10 mg PO QPM Discharge Orders: Discharge Order (Routine); Ordered 12/29/23 Ordered By: Christopher Alvares/Other Patient Handouts: Managing Type 2 Diabetes, When You Have Pneumonia Admission Data Admit Date/Time: 12/28/23 20:00 Attending Provider: Andrea Spencer Admit Provider: Andrea Spencer Primary Care Provider: Poppy Das Other Providers: Mannie Parisi Other Interventions: Discharge Summary Assessment (RN) Last Done: 12/29/23 12:50 Supervising Physician Co-Signing Physician Notes I personally examined the patient and verified all craig points of history and exam, discussed case, and agree with decision making with Dr Martin and Alecia Alston'Nicolette MS4 Feeling better. Would like to go home. Vitals noted, in general he is awake and alert pleasant no distress. HEENT normocephalic atraumatic mucous membranes moist. Pulse ox 8990 on room air at rest, ask him to use the incentive spirometer, after 3 inhalations he has a fairly vigorous wet sounding cough and his pulse ox immediately jumps to 97%. We then take a walk around the entire side of the unit, and whenever he comes back his pulse ox is 91%, and again after bit of a coughing fit it bumped to 93. Community-acquired pneumonia with acute hypoxic respiratory failure present on admissionfortunately his oxygen requirement now appears to be lesseningand clearly atelectasis/mucus related. He is feeling much better and safe/stable for home. Finish course of p.o. antibiotics, outpatient follow-up. Otherwise as above.
--- NOTE | 2023-12-29 17:56 | Billing Data ---
Date of Service December 29, 2023 Coding Level of Care Code 70550 IN/OBS DISCH 30 MIN/LESS
--- NOTE | 2023-12-30 08:42 | Coding Query ---
CODING QUERY To promote full compliance with coding requirements relating to patient care, provider participation is requested in all cases of maintenance team member uncertainty. Please assist us with the question(s) below: Clinical Indicators: ED Note: * WBC - * Temp - 36.7C * Pulse - 105 * Resp - 22 * Pulse Ox - 91 * BP - 123/83 * Mild hyponatremia Progress Note 12/27: * Multifocal pneumonia * Probably bacterial overgrowth superimposed on viral, but with mycoplasma * Zosyn 4.5 g IV q8h to cover for possible aspiration PNA * add on doxycycline 100 mg IV q12h for atypical coverage * septic present on admission * does not appear to have severe sepsis/septic shock Discharge Summary: * Multifocal pneumonia, mycoplasma pneumoniae, rhinovirus * Community-acquired pneumonia with acute hypoxic respiratory failure present on admission Coding Question(s): Based on the clinical indicators listed above, are you able to further specify the "septic condition" as: * Sepsis most c/w sepsis w SIRS being RR/HR source of infection being pneumonia * Severe sepsis * Severe sepsis w/septic shock * Pneumonia w/o the presence of sepsis * Other (please specify) * Unable to determine. Physician's Response(s): Thank you Zonia Urias Principal Diagnosis: "that condition established after study, to be chiefly responsible for occasioning the admission of the patient to the hospital for care." Co-Existing Principal Diagnosis: "when two or more diagnoses equally meet the criteria for principal diagnosis as determined by the circumstances of admission, diagnostic work up, and/or therapy provided, and the Alphabetic Index, Tabular List, or another coding guideline does not provide sequencing direction, any one of the diagnoses may be sequenced first." "When the physician has documented what appears to be a current diagnosis in the body of the record, but has not included the diagnosis in the final diagnostic statement, the physician should be asked whether the diagnosis should be added." (Source Coding Clinic 2 QTR90. p3-4) CHERYL
== END 2023-12-29 13:20 | disposition home or self-care (01) | DRG 871 ==
LOC: ED 08:35 → EDINP 08:35 → SUATTDRO 11:54 → EDINP 22:26 → 2W 22:45